=== PATIENT | female | born 1950 | race Caucasian/White ===

== ENCOUNTER 2020-04-11 13:15 | Outpatient (REF) | payer MEDICARE, OTHER, SELFPAY | END 2020-04-11 13:16 | disposition home or self-care (01) | LOC: HO.LAB 13:15 | PROVIDERS: Visit Provider Internal Medicine | DX: Z20.828 Contact with and (suspected) exposure to other viral communicable diseases (principal) | CPT/HCPCS: C9803; U0003 ==

== ENCOUNTER 2025-02-19 11:21 | Outpatient (REF) | payer MEDICARE, OTHER, SELFPAY ==
--- NOTE | ~2025-02-19 | XR_ITS ---
EXAMINATION: XR CHEST CLINICAL INFORMATION: R05.9 - Cough, unspecified COMPARISON: None available. TECHNIQUE: 2 views of the chest were obtained. FINDINGS: The cardiac, hilar, and mediastinal contours are normal. The lungs are clear bilaterally. There is no pneumothorax or pleural effusion. There is no focal osseous or soft tissue abnormality. Cervical device fusion partially imaged. XR/XR chest 2V IMPRESSION: No active pulmonary disease. Electronically signed by: Alex Spencer MD 02/19/2025 01:25 PM JEANNE
[2025-02-19 17:13] LABS: Resp Syncy Virus RNA Qual PCR NEGATIVE (Negative); SARS COV2 PCR INHOUSE POSITIVE (Negative)
== END 2025-02-19 11:22 | disposition home or self-care (01) ==
LOC: HO.HMGCX 11:21
PROVIDERS: PCP Internal Medicine; Visit Provider Physician Assistant Medical
DX: R06.02 Shortness of breath (principal); R05.9 Cough, unspecified; R09.89 Other specified symptoms and signs involving the circulatory and respiratory systems; E11.9 Type 2 diabetes mellitus without complications
CPT/HCPCS: 71046; 87637; 99212

== ENCOUNTER 2025-02-19 11:21 | Outpatient (AMB) | payer MEDICARE, OTHER, SELFPAY ==
--- OUTSIDE RECORDS SUMMARY | 2025-02-15 18:03 | XMS_ITS | Encounter Summary ---
Author Organization [facility] Address [address] [place] [address] Care Team Providers Care Communications Analyst Name Role Phone Barbara Aguero MD Primary Care Provider Reason for Visit * Reason Comments Fall Encounter Details Date Type Department Care Team (Late st Contact Info) Description 02/15/2025 7:03 PM EDT - 02/15/2025 9:47 PM EDT Emergency [facility] Emergency [address] [place] [address] Acute pain of both knees (Primary Dx); Fall, initial encounter Discharge Disposition: Home or Self Care Social History Tobacco Use Types Packs/Day Years Used Date Smoking Tobacco: Former Cigarettes Q uit: 07/25/1992 Smokeless Tobacco: Never Alcohol Use Standard Drinks/Week Comments Not Currently 0 (1 standard drink = 0.6 oz pur e alcohol) Housing Instability Answer Date Recorde d Are you worried that in the next 2 months you may not have stable housing? No 12/13/2024 Food Access & Nutrition Answer Date Rec orded Do you have access to a vari ety of food including fruits and vegetables? Yes 12/13/2024 Access to Healthcare Answer Date Record ed Within the last 3 months, carol okeefe many times did you visit the emergency department for your medical care? 0 12/13/2024 Health Literacy Answer Date Recorded How often do you need to hav e someone help you when you read instructions, pamphlets, or other written material from your doctor or pharmacy? Never 12/13/2024 Caregiver: How often do you need to have someone help you when you read instructions, pamphlets, or other written material from your doctor or pharmacy? Not on file 12/13/2024 Financial Risk Answer Date Recorded How hard is it for you to pa y for the very basics like food, housing, medical care, and air conditioning / heating? Not very hard 12/13/2024 Transportation Answer Date Recorded Has the lack of transportati on kept you from meetings, work, or from getting things needed for daily living? No Has the lack of transportati on kept you from medical appointments or from getting medications? No 12/13/2024 Social Isolation Answer Date Recorded How often do you feel lonely or isolated from those around you? Sometimes 12/13/2024 Food Risk Answer Date Recorded Within the past 12 months we worried whether our food would run out before we got money to buy more. Never true 12/13/2024 Within the past 12 months th e food we bought just didn't last and we didn't have money to get more. Never true 12/13/2024 Dependent Care Answer Date Recorded Do you need help finding or paying for care for your loved ones. For example, childcare center administrator or elderly care for an older adult? No 12/13/2024 Education Answer Date Recorded Do you think completing more education or training, like finishing a GED, going to college, or learning a trade, would be helpful for you? No 12/13/2024 Employment and Income Answer Date Recor ded During the last four weeks, have you been actively looking for work? No 12/13/2024 Living Situation Answer Date Recorded What is your living situation? Unrecognized valu e 12/13/2024 Comments No Sex and Gender Information Value Date Recorded Sex Assigned at Female 05/29/2024 4:58 PM EST Legal Sex Female 4:06 AM EST Gender Identity Female 05/29/2024 4:58 PM EST Sexual Orientation Straight 05/29/2024 4: 58 PM EST documented as of this encounter Last Filed Vital Signs Vital Sign Reading Time Taken Comments Blood Pressure 181/74 02/15/2025 6:02 PM EDT Pulse 97 02/15/2025 6:02 PM EDT Temperature 37.4 C (99.3 F) 02/15/2025 6:02 PM EDT Respiratory Rate 22 02/15/2025 6:02 PM EDT Oxygen Saturation 98% 02/15/2025 6:02 PM EDT Inhaled Oxygen Concentration - - Weight 77.1 kg (170 lb) 02/15/2025 6:02 PM EDT Height 157.5 cm (5' 2 ) 02/15/2025 6:02 PM EDT Body Mass Index 31.09 02/15/2025 6:02 PM EDT documented in this encounter Functional Status * Calculated C-SSRS Risk Score (Lifetime/Recent) Answer Date of Assessment Author No Risk Indicated 02/15/2025 6:05 PM EDT Raegna Eaton RN * [place] Suicide Severity Rating Scale (Screener/Recent Self-Report) Question Answer Date of Assessment Author 1. Wish to be (Past 1 Month) No 025 6:05 PM EDT Raegan Eaton RN 2. Non-Specific Active Suici luz maria Thoughts (Past 1 Month) No 02/15/2025 6:05 PM EDT Roly Eaton RN 6. Suicidal Behavior (Lifetime) No 6:05 PM EDT Raegan Eaton RN documented as of this encounter Discharge Instructions * Discharge Instructions* LUANN Sanchez - 02/15/2025 9:28 PM EDT You were seen for your muscle/skeletal concern. Your initial interpretation of x-ray today was negative for fracture dislocation. If you still have pain in 7 days then please get repeat x-rays done to rule out fracture. Follow up with your primary care provider who may order advanced imaging such as CT ultrasound or MRI. May refer you to physical therapy or to email marketing specialist. Apply over the counter NSAID topical cream to the area 4 times a day, use ice for 30 minutes 3-5 times daily. If given, then use splint/brace and elevate. You may choose to buy an over the counter brace or compression sleeve for comfort. Follow up with your primary provider for re-evaluation within 3 days. Return to the Emergency Department sooner if you have numbness/tingling, coolness to extremity. documented in this encounter Medications at Time of Discharge atorvastatin (LIPITOR) 40 mg tablet Take 1 tablet (40 mg total) by mouth 1 (one) time each day. 90 each 1 12/13/2024 blood-glucose sensor (Dexcom G7 Sensor) device Box = Kit = EA 9 each 12/13/2024 blood-glucose,rec eiver,cont (Dexcom G7 Bounty Hunter) misc 3 (three) times a day before meals. 1 each 1 12/13/2024 blood-glucose,rec eiver,cont misc Blood glucose monitoring 1 each 1 12/26/2024 clobetasoL (TEMOVATE) 0.05 % ointmentIndicatio ns:Lichen sclerosus of the vulva Apply a small amount (the size of a rice grain!) of clobetasol ointment to vulva twice daily for four weeks. Then, apply once daily for four weeks. Then, apply three times per week for four weeks. Then apply twice weekly thereafter. 60 g 3 08/07/2024 cyclobenzaprine (FLEXERIL) 5 mg tablet Take 1 tablet (5 mg total) by mouth at bedtime as needed for muscle spasms. 30 tablet 12/26/2024 5 dapagliflozin propanediol (Farxiga) 10 mg tablet Take 1 tablet (10 mg total) by mouth 1 (one) time each day. 90 each 12/13/2024 5 diclofenac (VOLTAREN) 1 % topical gel Apply 4 g topically 4 (four) times a day for 7 days. 100 g 02/15/2025 5 fenofibrate (TRICOR) 145 mg tablet Take 1 tablet (145 mg total) by mouth 1 (one) time each day. 90 each 12/13/2024 gabapentin (NEURONTIN) 300 mg capsule Take 1 capsule (300 mg total) by mouth 3 (three) times a day. 270 each 1 12/13/2024 insulin glargine (LANTUS SoloStar) 100 unit/mL (3 mL) injection pen Inject 38 Units under the skin at bedtime. 45 mL 12/13/2024 5 insulin lispro 100 unit/mL injection -Administer within 15 minutes of a meal PATIENT FOLLOWS WITH SLIDING SCALE AT HOME 90 mL 1 12/26/2024 isosorbide mononitrate (IMDUR) 120 mg 24 hr tablet Take 1 tablet (120 mg total) by mouth 1 (one) time each day. Do not crush or chew. 90 each 1 12/13/2024 lidocaine (LIDODERM) 5 % patch Apply 1 patch topically 1 (one) time each day if needed for moderate pain or severe pain. Apply to painful area 12 hours per day, remove for 12 hours. 30 each 2 12/26/2024 losartan (COZAAR) 25 mg tablet Take 1 tablet (25 mg total) by mouth 1 (one) time each day. 90 each 1 12/13/2024 mirabegron (Myrbetriq) 50 mg 24 hr tablet Take 1 tablet (50 mg total) by mouth 1 (one) time each day. 90 tablet 3 11/07/2024 pantoprazole (PROTONIX) 20 mg EC tablet Take 1 tablet (20 mg total) by mouth 1 (one) time each day before breakfast. Do not crush, chew, or split. 90 tablet 1 12/13/2024 simethicone (MYLICON) 80 mg chewable tablet Chew 1 tablet (80 mg total) every 6 (six) hours if needed for flatulence. 30 tablet 2 12/13/2024 SUMAtriptan (IMITREX) 25 mg tablet Take 1 tablet (25 mg total) by mouth 1 (one) time if needed for migraine. May repeat after 2 hours. 27 tablet 3 12/13/2024 traZODone (DESYREL) 50 mg tablet Take 1 tablet (50 mg total) by mouth at bedtime as needed for sleep. 90 tablet 1 12/13/2024 documented as of this encounter Ordered Prescriptions Prescription Sig Dispense Quantity Refills Last Filled Start Date End Date diclofenac (VOLTAREN) 1 % topical gel Apply 4 g topically 4 (four) times a day for 7 days. 100 g 02/15/2025 5 documented in this encounter Discharge Disposition Disposition Code Departure Means Destination Comment s Home or Self Care Patient evaluated, treated and dcd by provider in triage. This RN did not take part in patient's care documented in this encounter Progress Notes * Patty Guidry RN - 02/15/2025 5:58 PM EDT Two days ago she was walking in her house and fell. She states she didn't trip on anything and didn't get dizzy and fall. She hurt both knees, left hip and groin pain, and neck pain. She is ambulatory with a cane on arrival. * LUANN Sanchez - 02/15/2025 5:56 PM EDT HPI Chief Complaint Patient presents with Fall Patient 74-year-old female past medical history diabetes hypertension coronary artery disease anemia presents emergency department for evaluation of bilateral knee pain left hip pain after a fall 2 days ago. Patient without preceding chest pain shortness of breath. Patient states she did not trip on anything. She did not have an LOC or head trauma. She is not on blood thinners. She states pain to the extremities. This is where she fell onto. She recalls the entire event. She felt well after the fall. She has not treated her symptoms at home. She has full range of motion no distal paresthesias or weakness. No slurred speech. No headache blurred vision. No neck pain. 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 Physical Exam ED Triage Vitals [02/15/25 1802] Temp Heart Rate Resp BP 37.4 ??C (99.3 ??F) 97 22 (!) 181/74 SpO2 Temp Source Heart Rate Source Patient Position 98 % Oral -- -- BP Location FiO2 (%) -- -- Physical Exam Vitals and nursing note reviewed. Constitutional: Appearance: Normal appearance. HENT: Head: Normocephalic and atraumatic. Cardiovascular: Rate and Rhythm: Normal rate and regular rhythm. Pulmonary: Effort: Pulmonary effort is normal. Breath sounds: Normal breath sounds. Musculoskeletal: General: Tenderness present. No swelling or deformity. Normal range of motion. Cervical back: Normal range of motion and neck supple. Comments: Bilateral knees: Patient with tenderness palpation overlying skin soft tissue findings soft warm compartments distally Skin: General: Skin is warm and dry. Capillary Refill: Capillary refill takes less than 2 seconds. Neurological: General: No focal deficit present. Mental Status: She is alert. ED Course & MDM Clinical Impressions as of 02/15/252245 Acute pain of both knees Fall, initial encounter Medical Decision Making Differential diagnosis includes fracture dislocation musculoskeletal strain sprain. Low suspicion skin soft tissue infection neurovascular injury. X-rays obtained pelvis x-rays knees bilaterally negative for fracture dislocation. Patient discharged with Voltaren prescription. Return precautions discussed. Procedures LUANN Sanchez 02/15/252126 [1] Past Medical History: Diagnosis Date Anemia DX:Anemia CAD (coronary artery disease) DX:CAD (coronary artery disease) Diabetes (CMS/HCC V24, CMS/HCC V28) DX:Diabetes (HCC) Diabetes mellitus (CMS/HCC V24, CMS/HCC V28) DX:Diabetes mellitus (HCC) HTN (hypertension) DX:HTN (hypertension) Hypertension DX:Hypertension [2] Past Surgical History: Procedure Laterality Date CARPAL TUNNEL RELEASE Right 10/07/2023 and TF release of ring finger CHOLECYSTECTOMY PROCEDURE:CHOLECYSTECTOMY HERNIA REPAIR PROCEDURE:HERNIA REPAIR HYSTERECTOMY PROCEDURE:HYSTERECTOMY HYSTERECTOMY PROCEDURE: HISTORICAL HYSTERECTOMY TOTAL KNEE ARTHROPLASTY PROCEDURE: HISTORICAL TOTAL KNEE REPLACE [3] Family History Problem Relation Name Age of Onset Lung cancer Sister Brain cancer Sister Lung cancer Sister LUANN Sanchez 02/15/252245 Cosigned by Jeff Jensen MD at 02/16/2025 2:35 AM EDT documented in this encounter Plan of Treatment Upcoming Encounters Date Type Department Care Team (Late st Contact Info) Description 02/27/2025 8:30 AM EST Office Visit Urogynecology - [address] [phone] Salima Milton MD [address] [address] [place] [address] 02/27/2025 1:30 PM EST Office Visit [facility] Hematology Oncology [address] [place] [phone] Tasia Frey PA [address] [place] [address] 03/19/2025 9:00 AM EST Appointment [facility] Endoscopy [address] [place] [phone] Toni Carlson DO [address] [facility] [address] [place] [address] 03/21/2025 1:30 PM EST Office Visit Orthopedic Surgery - [place] [address] [facility] [address] [place] [phone] Zoran Marin, DPM [address] [place] [phone] 04/04/2025 11:30 AM EST Office Visit [facility] - [address] [phone] Barbara Aguero MD [address] [place] [address] 04/05/2025 2:00 PM EST Office Visit Endocrinology - [address] [phone] Charlee Ray PA [address] [place] [address] 08/13/2025 2:00 PM EDT Office Visit Pulmonology - [place] [address] [facility] [address] [place] [phone] Deneen Carter MD [address] [place] [address] 11/13/2025 8:30 AM EDT Office Visit Urogynecology [address] [phone] Salima Milton MD [address] [place] [address] 12/13/2025 4:00 PM EDT Office Visit [facility] - [address] [phone] Barbara Aguero MD [address] [place] [address] documented as of this encounter Goals Goal Patient Goal Type Associated Problems Recent Progress Patient-Stated? Author <enter goal here> General No change( 025 1:35 PM EDT) Yes Fide Leone, OT Note: OT PATIENT GOAL HAVE LESS PAIN RIGHT DOMINANT HAND TO RESUME ARTS AND CRAFTS documented as of this encounter Procedures Procedure Name Priority Date/Time Associated Diagnosis Comments XR PELVIS 1-2 VIEWS STAT 02/15/2025 7 :49 PM EDT XR KNEE 4+ VIEWS BILAT STAT 02/15/2025 7:49 PM EDT documented in this encounter Results * XR Knee 4+ Views bilat (02/15/2025 7:49 PM EDT) Anatomical Region Laterality Modality Lower Extremities, Knee Bilateral [facility] 02/16/2025 9:46 AM EDT Impressions 02/16/2025 9:47 AM EDT FINDINGS/IMPRESSION: Right knee arthroplasty. No acute fracture or dislocation. Mild tricompartmental degenerative changes at the left knee. No joint effusions or focal soft tissue swelling. Arterial calcifications. -------- FINAL REPORT -------- Dictated By: HANDY GRANT Dictated Date: 02/16/2025 09:46 ET Assigned Physician: HANDY GRANT Reviewed and Electronically Signed By: HANDY GRANT Signed Date: 02/16/2025 09:47 ET Workstation ID: [id number] Transcribed By: Self Edit Transcribed Date: 02/16/2025 09:46 ET Narrative 02/16/2025 9:47 AM EDT XR KNEE 4+ VIEWS BILAT INDICATION: Pain TECHNIQUE: XR KNEE 4+ VIEWS BILAT COMPARISON: No priors available. Procedure Note Handy Grant MD - 02/16/2025 XR KNEE 4+ VIEWS BILAT INDICATION: Pain TECHNIQUE: XR KNEE 4+ VIEWS BILAT COMPARISON: No priors available. IMPRESSION: FINDINGS/IMPRESSION: Right knee arthroplasty. No acute fracture ordislocation. Mild tricompartmental degenerative changes at the left knee.No joint effusions or focal soft tissue swelling. Arterialcalcifications. -------- FINAL REPORT -------- Dictated By: HANDY GRANT Dictated Date: 02/16/2025 09:46 ET Assigned Physician: HANDY GRANT Reviewed and Electronically Signed By: HANDY GRANT Signed Date: 02/16/2025 09:47 ET Workstation ID: [id number] Transcribed By: Self Edit Transcribed Date: 02/16/2025 09:46 ET Lesley KONG IMG XR PROCEDURES Final Result * XR Pelvis 1-2 Views (02/15/2025 7:49 PM EDT) Anatomical Region Laterality Modality Body, Pelvis Radiographic Neda ging 02/16/2025 9:48 AM EDT Impressions 02/16/2025 9:48 AM EDT FINDINGS/IMPRESSION: No acute fracture or dislocation. Mild degenerative changes at the hips. Degenerative change also noted in the lower lumbar facet joints. Surgical clips overlie the pelvis. No focal soft tissue swelling. -------- FINAL REPORT -------- Dictated By: HANDY GRANT Dictated Date: 02/16/2025 09:48 ET Assigned Physician: HANDY GRANT Reviewed and Electronically Signed By: HANDY GRANT Signed Date: 02/16/2025 09:48 ET Workstation ID: [id number] Transcribed By: Self Edit Transcribed Date: 02/16/2025 09:48 ET Narrative 02/16/2025 9:48 AM EDT XR PELVIS 1-2 VIEWS INDICATION: Pain TECHNIQUE: XR PELVIS 1-2 VIEWS COMPARISON: No priors available. Procedure Note Handy Grant MD - 02/16/2025 XR PELVIS 1-2 VIEWS INDICATION: Pain TECHNIQUE: XR PELVIS 1-2 VIEWS COMPARISON: No priors available. IMPRESSION: FINDINGS/IMPRESSION: No acute fracture or dislocation. Mild degenerativechanges at the hips. Degenerative change also noted in the lower lumbarfacet joints. Surgical clips overlie the pelvis. No focal soft tissueswelling. -------- FINAL REPORT -------- Dictated By: HANDY GRANT Dictated Date: 02/16/2025 09:48 ET Assigned Physician: HANDY GRANT Reviewed and Electronically Signed By: HANDY GRANT Signed Date: 02/16/2025 09:48 ET Workstation ID: [id number] Transcribed By: Self Edit Transcribed Date: 02/16/2025 09:48 ET Lesley KONG IMG XR PROCEDURES Final Result documented in this encounter Visit Diagnoses Diagnosis Acute pain of both knees- Primary Fall, initial encounter documented in this encounter Additional Health Concerns Assessment Noted Time PHQ-9 Depression Total Score: 0 12/14/19 25 2:10 PM EDT A fall risk assessment has been complete d for the patient 12/13/2024 2:11 PM EDT documented as of this encounter Care Teams Communications Analyst Relationship Specialty Start Date End Date Barbara Aguero MD [address] [place] [address] PCP - General 10/26/23 documented as of this encounter
[2025-02-19 11:39] VITALS: BP 157/59; PULSE 90; RESP 18; O2SAT 97
--- NOTE | 2025-02-19 11:39 | AM.OFFWIN_ITS ---
Intake Vital Signs 02/19/25 11:39 02/19/25 11:43 Height 5 ft 3.5 in Weight 172 lb BMI 30.0 BP 157/59 H 146/54 H Blood Pressure Location Lt brachial Lt brachial Position Sitting Sitting Respiration 18 Pulse 90 77 Pulse Source Pulse Oximeter Pulse Oximeter Temp 98.1 F Temp Source Oral Pulse Oximetry (%) 97 97 Oxygen Delivery Method Room Air Room Air Intake Visit Reasons: EP Cough, SOB Intake Note: pt presents with chest congestion with dry cough, SOB with worsening when laying down- s/s for 3 days Allergies codeine (CODEINE) Allergy (Severe, Verified 02/19/25 11:47) Anaphylaxis cephalexin Allergy (Intermediate, Verified 02/19/25 11:47) Rash amoxicillin Allergy (Mild, Verified 02/19/25 11:47) Rash Iodinated Contrast Media (IV DYE, IODINE CONTAINING CONTRAST ) Allergy (Unknown, Verified 02/19/25 11:44) UNKNOWN Sulfa (Sulfonamide Antibiotics) (SULFA (SULFONAMIDE ANTIBIOTICS)) Allergy (Unknown, Verified 02/19/25 11:44) HIVES azithromycin (From ZITHROMAX) Adverse Reaction (Intermediate, Verified 02/19/25 11:44) CDIFF hydromorphone Adverse Reaction (Intermediate, Verified 02/19/25 11:47) mental altering Do you need a note to return to daycare/school/sports/work: No HPI HPI Comments History of Present Illness Details History - The patient is a 74-year-old female pr esenting with a persistent cough and difficulty sleeping due to breathing issues. - The cough began on Wednesday afternoon an d is described as dry, with no phlegm production. - The patient denies any history of asth ma or COPD and has not used inhalers. - She reports a sore throat, which is li rosemary due to the persistent coughing. - The patient has a history of hypertens ion and diabetes mellitus, which affects her medication preferences, particularly avoiding prednisone due to its impact on blood sugar levels. - She denies fever, chills, chest pain, SOB, abd pain, n/v/d, DELA CRUZ, ear pain, recent travel or sick contacts. Physical Exam General: Cooperative, healthy appearing, comfortable and no acute distress Orientation/consciousness: Patient oriented x3 Limitations: No limitations Head: Normal to inspection Ears: Hearing grossly normal bilaterally, external ears normal and TM's normal bilaterally Nose: Normal external nose present, normal nares present, and no nasal discharge present. Face and sinus: Sinuses nontender to palpation. Mouth: Normal oral and palatal mucosa present and moist mucous membranes noted. Throat: Tonsils normal. Uvula is midline. Posterior oropharynx with erythema and no exudates. Sore throat noted. Eyes: Appearance normal, both eyes and all related structures Neck: Normal visual inspection, full ROM. No lymphadenopathy noted. Respiratory: Clear to auscultation bilaterally. Normal respiratory effort, able to speak in complete sentences. No respiratory distress, not tachypneic, no tripod positioning and no use of accessory muscles. Coughing noted. Cardiovascular: Regular rate and rhythm. Normal S1 and S2 Skin: No rashes or lesions noted Patient was informed and verbally consented to the use of an ambient scribe for clinic note documentation during this visit Review of Systems Const All systems reviewed & are unremarkable except as noted in HPI and below Physical Exam Vital Signs: Last Vital Signs Temp 98.1 F 02/19/25 11:43 Pulse 77 02/19/25 11:43 Resp 18 02/19/25 11:39 BP 146/54 H 02/19/25 11:43 Pulse Ox 97 02/19/25 11:43 Oxygen Delivery Method Room Air 02/19/25 11:43 BMI result Body Mass Index 30.0 Results Reviewed Results Reviewed: will review her CXR in the office Assessment & Plan Assessment & Plan (1) Cough: Code(s): R05.9 - Cough, unspecified Plan Most likely URI vs covid vs CAP vs viral illness Plan - VSS, pt well appearing - Diagnostic testing includes COVID-19, influenza, and RSV swabs, as well as a chest x-ray. - Treatment plan includes prescribing an inhaler and cough medicine, avoiding prednisone due to diabetes. - tylenol or motrin as needed - will call with the results - follow up with PCP Orders: Orders SARS-CoV2/FLU/RSV Today R09.89 - Other specified symptoms and signs involving the circulatory and respiratory systems XR chest 2V Today R05.9 - Cough, unspecified Medications: New benzonatate 200 mg PO BEDTIME PRN 10 caps 0RF cough albuterol sulfate 90 mcg/actuation 2 puffs inhalation Q6H PRN 8.5 grams 0RF shortness of breath or wheezing or cough Coding Level of Care Code Est Pt Level 4 (78201) Diagnoses Cough R05.9
--- NOTE | 2025-02-19 11:39 | MHC.OFFWIV ---
Intake Vital Signs 02/19/25 11:39 02/19/25 11:43 Height 5 ft 3.5 in Weight 172 lb BMI 30.0 BP 157/59 H 146/54 H Blood Pressure Location Lt brachial Lt brachial Position Sitting Sitting Respiration 18 Pulse 90 77 Pulse Source Pulse Oximeter Pulse Oximeter Temp 98.1 F Temp Source Oral Pulse Oximetry (%) 97 97 Oxygen Delivery Method Room Air Room Air Intake Visit Reasons: EP Cough, SOB Intake Note: Pt ambulated (I) gait steady to triage corner. A/O x 3, no shortness of breath noted speaks in full sentences. Lungs - diminished. Heart sounds - regular. Pt c/o dry cough since Wednesday with shortness of breath, taking Tylenol cold/cough. Hx of 3 cardiac stents placed 2-3 years ago. Pt stated left side chest pain this am between 4600-3949 which last for approximately 7 minutes. Pt stated she took her am medications today. Pt stated insulin diabetic, blood sugar now - 398. Pt stated that she had 1 toast, cup of coffee and diet cranberry juice. Portia (PA-C) and Felecia ([employer]) aware. Allergies codeine (CODEINE) Allergy (Severe, Verified 02/19/25 11:47) Anaphylaxis cephalexin Allergy (Intermediate, Verified 02/19/25 11:47) Rash amoxicillin Allergy (Mild, Verified 02/19/25 11:47) Rash Iodinated Contrast Media (IV DYE, IODINE CONTAINING CONTRAST ) Allergy (Unknown, Verified 02/19/25 11:44) UNKNOWN Sulfa (Sulfonamide Antibiotics) (SULFA (SULFONAMIDE ANTIBIOTICS)) Allergy (Unknown, Verified 02/19/25 11:44) HIVES azithromycin (From ZITHROMAX) Adverse Reaction (Intermediate, Verified 02/19/25 11:44) CDIFF hydromorphone Adverse Reaction (Intermediate, Verified 02/19/25 11:47) mental altering Coding
[2025-02-19 11:43] VITALS: BP 146/54; PULSE 77; TEMP 36.7; O2SAT 97
--- OUTSIDE RECORDS SUMMARY | 2025-02-19 14:27 | XMS_ITS | Clinical Summary ---
Author Organization 175 [facility] Address [address] [place] [address] Phone Care Team Providers Care Corrections Nurse Name Role Phone Barbara Aguero MD Primary Care Provider Allergies Active Allergy Reactions Criticality Noted Date Comments Amoxicillin 11/09/2022 Azithromycin 11/09/2022 Cephalexin 11/09/2022 Codeine 11/09/2022 Hydromorphone 11/09/2022 Iodinated Contrast Media Shortness of breath High Oxycodone 11/09/2022 Sulfa (Sulfonamide Antibiotics) 10/18 Medications albuterol HFA (PROAIR HFA ; PROVENTIL HFA ; VENTOLIN HFA) 90 mcg/actuation inhaler Inhale 2 puffs by mouth every 6 (six) hours if needed for shortness of breath or wheezing. for wheezing 6.7 g 2 5 Active clobetasoL (TEMOVATE) 0.05 % ointmentIndicati ons:Lichen sclerosus of the vulva Apply a small amount (the size of a rice grain!) of clobetasol ointment to vulva twice daily for four weeks. Then, apply once daily for four weeks. Then, apply three times per week for four weeks. Then apply twice weekly thereafter. 60 g 3 5 Active mirabegron (Myrbetriq) 50 mg 24 hr tablet Take 1 tablet (50 mg total) by mouth 1 (one) time each day. 90 tablet 3 5 Active atorvastatin (LIPITOR) 40 mg tablet Take 1 tablet (40 mg total) by mouth 1 (one) time each day. 90 each 1 5 Active fenofibrate (TRICOR) 145 mg tablet Take 1 tablet (145 mg total) by mouth 1 (one) time each day. 90 each 1 5 Active gabapentin (NEURONTIN) 300 mg capsule Take 1 capsule (300 mg total) by mouth 3 (three) times a day. 270 each 1 5 Active isosorbide mononitrate (IMDUR) 120 mg 24 hr tablet Take 1 tablet (120 mg total) by mouth 1 (one) time each day. Do not crush or chew. 90 each 1 5 Active losartan (COZAAR) 25 mg tablet Take 1 tablet (25 mg total) by mouth 1 (one) time each day. 90 each 1 5 Active pantoprazole (PROTONIX) 20 mg EC tablet Take 1 tablet (20 mg total) by mouth 1 (one) time each day before breakfast. Do not crush, chew, or split. 90 tablet 1 5 Active SUMAtriptan (IMITREX) 25 mg tablet Take 1 tablet (25 mg total) by mouth 1 (one) time if needed for migraine. May repeat after 2 hours. 27 tablet 3 5 12/14/19 26 Active traZODone (DESYREL) 50 mg tablet Take 1 tablet (50 mg total) by mouth at bedtime as needed for sleep. 90 tablet 1 5 Active simethicone (MYLICON) 80 mg chewable tablet Chew 1 tablet (80 mg total) every 6 (six) hours if needed for flatulence. 30 tablet 2 5 Active insulin glargine (LANTUS SoloStar) 100 unit/mL (3 mL) injection pen Inject 38 Units under the skin at bedtime. 45 mL 5 03/13/20 25 Active blood-glucose,re ceiver,cont (Dexcom G7 Export Clerk) misc 3 (three) times a day before meals. 1 each 1 5 Active blood-glucose sensor (Dexcom G7 Sensor) device Box = Kit = EA 9 each 5 Active dapagliflozin propanediol (Farxiga) 10 mg tablet Take 1 tablet (10 mg total) by mouth 1 (one) time each day. 90 each 5 03/13/20 25 Active insulin lispro 100 unit/mL injection -Administer within 15 minutes of a meal PATIENT FOLLOWS WITH SLIDING SCALE AT HOME 90 mL 1 5 Active cyclobenzaprine (FLEXERIL) 5 mg tablet Take 1 tablet (5 mg total) by mouth at bedtime as needed for muscle spasms. 30 tablet 5 02/25/20 25 Active lidocaine (LIDODERM) 5 % patch Apply 1 patch topically 1 (one) time each day if needed for moderate pain or severe pain. Apply to painful area 12 hours per day, remove for 12 hours. 30 each 2 5 Active blood-glucose,re ceiver,cont [facility] Blood glucose monitoring 1 each 1 5 Active diclofenac (VOLTAREN) 1 % topical gel Apply 4 g topically 4 (four) times a day for 7 days. 100 g 5 02/23/20 25 Active Active Problems Problem Noted Date Diagnosed Date Osteopenia 02/06/2025 Type 2 diabetes mellitus, wi th long-term current use of insulin ([facility] V24, [facility] V28) 12/15/2024 Carpal tunnel syndrome of right wrist 10/31/2024 Palmar fascial fibromatosis (dupuytren) 11/01/19 25 Decreased radial pulse 09/07/2024 JUVENTINO positive 09/07/2024 Chronic hand pain, left 09/07/2024 Right hand pain 09/07/2024 Gastroesophageal reflux disease 09/07/2024 Fall 09/07/2024 Hyperlipidemia 06/19/2024 Primary hypertension 03/02/2024 Type 2 diabetes mellitus wit h diabetic neuropathy, with long-term current use of insulin ([facility] V24, [facility] V28) 03/02/2024 Chronic obstructive pulmonar y disease ([facility] V24, [facility] V28) 03/02/2024 Iron deficiency anemia 11/10/2022 Encounters Date Type Department Care Team Description 02/16/2025 Results Follow-Up [address] [phone] Barbara Aguero MD 02/16/[address] [phone] Barbara Aguero MD 02/15/2025 7:03 PM EDT - 02/15/2025 9:47 PM EDT Emergency [facility] Emergency [address] [place] [phone] Acute pain of both knees (Primary Dx); Fall, initial encounter Discharge Disposition: Home or Self Care 02/15/[address] [phone] Barbara Aguero MD 02/06/2025 Results Follow-Up [address] [phone] Barbara Aguero MD 02/05/2025 1:13 PM EDT - 02/05/2025 11:59 PM EDT Hospital Encounter [facility] Bone Density [address] [place] [phone] Screening for osteoporosis; Postmenopausal Discharge Disposition: Home or Self Care 01/01/2025 3:30 PM EDT Office Visit Orthopedic Surgery - [place] [address] [phone] Zoran Marin, DPM Ulcer of toe of right foot, limited to breakdown of skin (CMS/HCC V24, CMS/HCC V28) (Primary Dx); Type 2 diabetes mellitus with other specified complication, with long-term current use of insulin (CMS/HCC V24, CMS/HCC V28); Metatarsalgia of both feet 12/26/2024 9:05 AM EDT - 12/26/2024 11:59 PM EDT Hospital Encounter [address] [phone] Acute pain of right shoulder Discharge Disposition: Home or Self Care 12/26/2024 9:04 AM EDT - 12/26/2024 11:59 PM EDT Hospital Encounter [facility] [address] [place] [address] Diffuse pain in right upper extremity Discharge Disposition: Home or Self Care 12/26/2024 9:04 AM EDT - 12/26/2024 11:59 PM EDT Hospital Encounter [facility] [address] [place] [address] Diffuse pain in right upper extremity Discharge Disposition: Home or Self Care 12/26/2024 9:00 AM EDT - 12/26/2024 11:59 PM EDT Hospital Encounter [facility] [address] [place] [address] Diffuse pain in right upper extremity Discharge Disposition: Home or Self Care 12/26/2024 7:30 AM EDT Office Visit Adult [address] [phone] Barbara Aguero MD Primary hypertension (Primary Dx); Acute pain of right shoulder; Diffuse pain in right upper extremity 12/26/2024 Telephone Gastroenterology - [place] [address] [place] [address] Matilde Kc MD 12/15/2024 9:45 AM EDT Office Visit Orthopedic Surgery - [place] 175 [facility] [address] [place] [phone] Becky Villa MD Type 2 diabetes mellitus with other specified complication, with long-term current use of insulin (CMS/HCC V24, CMS/HCC V28) (Primary Dx); Carpal tunnel syndrome of right wrist; Palmar fascial fibromatosis (dupuytren) 12/13/2024 2:00 PM EDT Office Visit Adult Medicine [address] [phone] Barbara Aguero MD Routine general medical examination at a health care facility (Primary Dx); Type 2 diabetes mellitus with other specified complication, with long-term current use of insulin ([facility] V24, [facility] V28); Screening for osteoporosis; Postmenopausal; Chronic obstructive pulmonary disease, unspecified COPD type ([facility] V24, [facility] V28); Primary hypertension; Stage 3 chronic kidney disease, unspecified whether stage 3a or 3b CKD ([facility] V24, [facility] V28) 12/13/2024 Telephone Adult Medicine [address] [phone] Barbara Aguero MD 12/04/2024 8:30 AM EDT Office Visit Orthopedic Surgery [place] [address] [phone] Zoran Marin DPM Acquired hammer toe of right foot (Primary Dx); Dermatophytosis of nail; Ulcer of toe of right foot, limited to breakdown of skin ([facility] V24, [facility] V28); Type 2 diabetes mellitus with other specified complication, with long-term current use of insulin ([facility] V24, [facility] V28); Metatarsalgia of both feet; Hammer toe of left foot; Pain in toe of right foot; Pain in toe of left foot; Diabetic mononeuropathy simplex ([facility] V24, [facility] V28) 11/29/2024 1:30 PM EDT Treatment [facility] Occupational Therapy [address] [phone] Fide Leone OT Right hand pain (Primary Dx); Carpal tunnel syndrome of right wrist 11/27/2024 1:40 PM EDT - 11/27/2024 11:59 PM EDT Hospital Encounter [facility] Neurodiagnostic [address] [place] [phone] Carpal tunnel syndrome of right wrist Discharge Disposition: Home or Self Care 11/22/2024 1:30 PM EDT Treatment [facility] Occupational Therapy [address] [phone] Leone, Fide A, OT Carpal tunnel syndrome of right wrist (Primary Dx) from Last 3 Months Immunizations Immunization Administration Dates Next Due Tdap Tetanus diptheria acell ular pertussis (Boostrix; Adacel) 7yo and older 03/02/2024 Surgical History Surgery Date Site/Laterality Comments HYSTERECTOMY PROCEDURE:HYSTERECTOMY CHOLECYSTECTOMY PROCEDURE:CHOLECYSTECTOMY HERNIA REPAIR PROCEDURE:HERNIA REPAIR TOTAL KNEE ARTHROPLASTY PROCEDURE: HISTORICAL TOTAL KNEE REPLACE HYSTERECTOMY PROCEDURE: HISTORICAL HYSTERECTOMY CARPAL TUNNEL RELEASE 10/07/2023 Right and TF release of ring finger Medical History Medical History Date Comments Diabetes mellitus ([facility] V24, [facility] V28) DX:Diabetes mellitus (HCC) Hypertension DX:Hypertension Diabetes (CMS/HCC V24, [facility] V28) DX:Diabetes (HCC) HTN (hypertension) DX:HTN (hyper tension) CAD (coronary artery disease) DX :CAD (coronary artery disease) Anemia DX:Anemia Family History Medical History Relation Name Comments Lung cancer Sister 1 Brain cancer Sister 2 Lung cancer Sister 3 Relation Name Status Comments Father Mother Sister 1 Sister 2 Sister 3 Social History Tobacco Use Types Packs/Day Years Used Date Smoking Tobacco: Former Cigarettes Q uit: 07/25/1992 Smokeless Tobacco: Never Tobacco Cessation:Counseling Given: Not Answered Alcohol Use Standard Drinks/Week Comments Not Currently [...] care for your loved ones. For example, child's nurse or elderly care for an older adult? [...] Orientation Straight 05/29/2024 4: 58 PM EST Obstetrics History Para Term AB IAB SAB Ectopic Multiple Livin g Live Births 1 1 1 1 Date Outcome GA Total Labor Labor/2nd/3rd Weight Sex Type Anes PTL Stephanie A1 A5 Name Clin Term Last Filed Vital Signs Vital Sign Reading [...] Mass Index 31.09 02/15/2025 6:02 PM EDT Plan of Treatment Upcoming Encounters Date Type Department Care Team (Late st Contact Info) Description 02/27/2025 8:30 AM EST Office Visit Urogynecology - [place] [phone] [place], [place] [phone] Salima Milton MD 580 [facility] 205 [place] [address] 02/27/2025 1:30 PM EST Office Visit [facility] Hematology Oncology [address] [place] [phone] Tasia Frey PA [address] [place] [address] 03/19/2025 9:00 AM EST Appointment [facility] Endoscopy [address] [place] [phone] Toni Carlson DO 299 [facility] [address] [place] [address] 03/21/2025 1:30 PM EST Office Visit Orthopedic Surgery - [place] 250 175 [facility] [address] [place] [phone] Zoran Marin, DPCarey [address] [place] [phone] 04/04/2025 11:30 AM EST Office Visit Adult Medicine [place] - [place] [address] [place], [place] [phone] Barbara Aguero MD 444 [place], [place] 04/05/2025 2:00 PM EST Office Visit Endocrinology - [address] [phone] Charlee Ray PA [address] [place], [place] 08/13/2025 2:00 PM EDT Office Visit Pulmonology - [place] [address] [facility] [address] [place] [phone] Deneen Carter MD [address] [place] [phone] 11/13/2025 8:30 AM EDT Office Visit Urogynecology - [address] [phone] Salima Milton MD [address] [place] [address] 12/13/2025 4:00 PM EDT Office Visit Adult Medicine [place] - [address] [phone] Barbara Aguero MD [address] [place] [address] Health Maintenance Due Date Last Done Comments Diabetes: Annual Foot Exam 1960 Colorectal Cancer Screening: Stool Based Tests (FOBT/FIT) 03/22/2022 COVID-19 Vaccine (7 - Moderna risk 2023- season) 2024 04/07/2024, 02/08/2023, 01/09/2022, Additional history exists RSV Immunization Adult Patients (1 - Risk 50-74 years 1-dose series) 04/19/2025 Postponed from 2001 (Patient Refused) Zoster Vaccines (1 of 2) 04/19/2025 Pos tponed from 1970 (Patient Refused) Diabetes: Blood Sugar Control Test (HGBA1C) 06/16/2025 12/15/2024, 09/14/2024, 08/25/2024, Additional history exists Diabetes: Annual Retina Eye Exam 07/18/2025 07/18/2024 Falls Risk Assessment 12/13/2025 12/13/2024 , 12/13/2024, 09/28/2024 Medicare Annual Wellness Visit 12/13/2025 12/13/2024 Social Influencers of Health Screening 12/13/2025 12/13/2024 Diabetes: Annual Urine Albumin-Creatinine Ratio (uACR) 12/15/2025 12/15/2024, 09/14/2024, 08/25/2024, Additional history exists Diabetes: Annual GFR (Glomerular Filtration Rate) 12/15/2025 12/15/2024, 09/24/2024, 09/14/2024, Additional history exists Hypertension/CHF/CAD Annual BMP Blood Test 12/15/2025 12/15/2024, 09/24/2024, 09/14/2024, Additional history exists Breast Cancer Screening 06/28/2026 06/28/2024 Cholesterol Screening (Lipid Panel) 12/15/2029 12/15/2024, 09/14/2024, 08/25/2024, Additional history exists DTaP,Tdap,and Td Vaccines (2 - Td or Tdap) 03/02/2034 03/02/2024 Osteoporosis Screening (Bone Density Screening) 02/05/2035 02/05/2025 Pneumococcal Vaccine: 50+ Years Completed 03/30/2023, 12/25/2020 Depression Screening Completed 12/13/2024 Hepatitis C Screening Completed 12/15/2024 Influenza Vaccine Completed 01/11/2025, , 01/04/2023, Additional history exists HIB Vaccines Aged Out No longer eligi ble based on patient's age to complete this topic HPV Vaccines Aged Out No longer eligi ble based on patient's age to complete this topic Hepatitis A Vaccines Aged Out No long er eligible based on patient's age to complete this topic Hepatitis B Vaccines Aged Out No long er eligible based on patient's age to complete this topic IPV Vaccines Aged Out No longer eligi ble based on patient's age to complete this topic MMR Vaccines Aged Out No longer eligi ble based on patient's age to complete this topic Meningococcal ACWY Vaccine Aged Out N o longer eligible based on patient's age to complete this topic Meningococcal B Vaccine Aged Out No l onger eligible based on patient's age to complete this topic RSV Immunization Patients Under 20 months Aged Out No longer eligible based on patient's age to complete this topic Varicella Vaccines Aged Out No longer eligible based on patient's age to complete this topic Goals Goal Patient Goal Type Associated Problems Recent Progress Patient-Stated? Author <enter goal here> General No change(11/29 1:35 PM EDT) Yes Fide Leone, OT Note: OT PATIENT GOAL HAVE LESS PAIN RIGHT DOMINANT HAND TO RESUME ARTS AND CRAFTS Autogenerated Goal Care Plan Autogenerated Problem No Becky Kim Procedures Procedure Name Priority Date/Time Associated Diagnosis Comments XR KNEE 4+ VIEWS BILAT STAT 7:49 PM EDT XR PELVIS 1-2 VIEWS STAT 02/15/2025 7 :49 PM EDT BD BONE DENSITY DXA AXIAL SKELETON Routine 02/05/2025 1:41 PM EDT Screening for osteoporosis Postmenopausal EXTERNAL CLINICAL LAB 01/18/2025 XR ELBOW 3+ VIEWS RIGHT Routine 12/26/2024 9:43 AM EDT Diffuse pain in right upper extremity XR WRIST 3+ VIEWS RIGHT Routine 12/26/2024 9:43 AM EDT Diffuse pain in right upper extremity XR SHOULDER 2+ VIEWS RIGHT Routine 12/26/2024 9:42 AM EDT Acute pain of right shoulder XR FOREARM 2 VIEWS RIGHT Routine 12/26/2024 9:41 AM EDT Diffuse pain in right upper extremity PHOSPHORUS Routine 12/15/2024 7:41 AM EDT Routine general medical examination at a [facility] care facility Type 2 diabetes mellitus with other specified complication, with long-term current use of insulin (CMS/HCC V24, [facility] V28) Type 2 diabetes mellitus with other specified complication, unspecified whether long-term insulin use (CMS/HCC V24, CMS/HCC V28) MICROALBUMIN CREATININE URINE RATIO Routine 12/15/2024 7:41 AM EDT Type 2 diabetes mellitus with other specified complication, unspecified whether long-term insulin use ([facility] V24, [facility] V28) LIPID PANEL WITH REFLEX TO DIRECT LDL Routine 12/15/2024 7:41 AM EDT Type 2 diabetes mellitus with other specified complication, unspecified whether long-term insulin use ([facility] V24, [facility] V28) COMPREHENSIVE METABOLIC PANEL Routine 12/15/2024 7:41 AM EDT Type 2 diabetes mellitus with other specified complication, unspecified whether long-term insulin use ([facility] V24, [facility] V28) HEPATITIS C ANTIBODY Routine 12/15/2024 7:41 AM EDT Routine general medical examination at a health care facility HEMOGLOBIN A1C Routine 12/15/2024 7:41 AM EDT Routine general medical examination at a health care facility Type 2 diabetes mellitus with other specified complication, with long-term current use of insulin ([facility] V24, [facility] V28) EMG Routine 11/27/2024 2:13 PM EDT Carpal tunnel syndrome of right wrist MG MAMMO DIGITAL SCREENING W AMRIK BILAT Routine 06/28/2024 3:45 PM EDT Encounter for screening mammogram for malignant neoplasm of breast from Last 3 Months or Most Recently Relevant to Health Maintenance Results * XR Pelvis 1-2 Views (02/15/2025 7:49 [...] Signed Date: 02/16/2025 09:48 ET Workstation ID: [id number] Transcribed By: Self Edit Transcribed Date: 02/16/2025 [...] Signed Date: 02/16/2025 09:48 ET Workstation ID: [id number] Transcribed By: Self Edit Transcribed Date: 02/16/2025 09:48 ET Lesley KONG IMG XR PROCEDURES Final Result * XR Knee 4+ Views bilat (02/15/2025 7:49 PM EDT) Anatomical Region Laterality Modality Lower Extremities, Knee Bilateral [facility] 02/16/2025 9:46 AM EDT Impressions 02/16/2025 [...] Signed Date: 02/16/2025 09:47 ET Workstation ID: [id number] Transcribed By: Self Edit Transcribed Date: 02/16/2025 [...] Signed Date: 02/16/2025 09:47 ET Workstation ID: [id number] Transcribed By: Self Edit Transcribed Date: 02/16/2025 09:46 ET Lesley KONG IMG XR PROCEDURES Final Result * BD Bone Density DXA Axial Skeleton (02/05/2025 1:41 PM EDT) Anatomical Region Laterality Modality Wrist, Hip, L-spine Bone Densito metry 02/05/2025 4:58 PM EDT Impressions 02/05/2025 4:59 PM EDT Osteopenia. Teleev KONG ([id number]) -------- FINAL REPORT -------- Dictated By: Jazlyn Ferrara Dictated Date: 02/05/2025 16:58 ET Assigned Physician: Jazlyn Ferrara Reviewed and Electronically Signed By: Jazlyn Ferrara Signed Date: 02/05/2025 16:59 ET Workstation ID: [id number] Transcribed By: Self Edit Transcribed Date: 02/05/2025 16:58 ET Narrative 02/05/2025 4:59 PM EDT History: Low estrogen state due to menopause. Parent hip fracture. Former smoker. Comparison: No comparison study at this institution. Findings: Bone densitometry is performed utilizing dual energy x-ray absorptiometry (DXA) in the Bonafide Prodigy unit. The lumbar spine and proximal femora are evaluated in the AP projection. The FRAX questionaire was completed. The results indicate low bone mass (osteopenia), with a right femoral neck T- score of -2.4. The Z score is -0.8, indicating bone mineral density within the range of normal for age. The detailed DEXA report will be mailed to the referring physician's office. DualFemur FRAX: 10-year Probability of Fracture: Major Osteoporotic 25.1 percent Hip 13.7 percent. Procedure Note Jazlyn Ferrara MD - 02/05/2025 History: Low estrogen state due to menopause. Parent hip fracture. Formersmoker. Comparison: No comparison study at this institution. Findings: Bone densitometry is performed utilizing dual energy x-ray absorptiometry(DXA) in the Lunar Prodigy unit. The lumbar spine and proximal femora areevaluated in the AP projection. The FRAX questionaire was completed. The results indicate low bone mass (osteopenia), with a right femoral neckT- score of -2.4. The Z score is -0.8, indicating bone mineral densitywithin the range of normal for age. The detailed DEXA report will bemailed to the referring physician's office. DualFemur FRAX: 10-year Probability of Fracture: Major Osteoporotic 25.1percent Hip 13.7 percent. IMPRESSION: Osteopenia. Telerad LUANN ([id number]) -------- FINAL REPORT -------- Dictated By: Jazlyn Ferrara Dictated Date: 02/05/2025 16:58 ET Assigned Physician: Jazlyn Ferrara Reviewed and Electronically Signed By: Jazlyn Ferrara Signed Date: 02/05/2025 16:59 ET Workstation ID: [id number] Transcribed By: Self Edit Transcribed Date: 02/05/2025 16:58 ET us Barbara Aguero MD IMG DXA PROCEDURES Final Re sult * External clinical lab (01/18/2025) us Provider [facility] BLOOD ORDERABLES Fin al Result * XR Elbow 3+ Views Right (12/26/2024 9:43 AM EDT) Anatomical Region Laterality Modality Upper Extremities, Elbow Right Radiogr [facility] Imaging 12/26/2024 11:4 8 AM EDT Impressions 12/26/2024 11:49 AM EDT No fracture or dislocation of the right elbow. -------- FINAL REPORT -------- Dictated By: Octavia Medley Dictated Date: 12/26/2024 11:48 ET Assigned Physician: Octavia Medley Reviewed and Electronically Signed By: Octavia Medley Signed Date: 12/26/2024 11:49 ET Workstation ID: [id number] Transcribed By: Self Edit Transcribed Date: 12/26/2024 11:48 ET Narrative 12/26/2024 11:49 AM EDT HISTORY: fall, rght upper extremity pain TECHNIQUE: 3 viewsof the right elbow COMPARISON: None FINDINGS: The elbow joint is well maintained. No fracture or dislocation is seen. There is no joint effusion present. Soft tissues are unremarkable. Procedure Note Octavia Medley MD - 12/26/2024 HISTORY: fall, rght upper extremity pain TECHNIQUE: 3 viewsof the right elbow COMPARISON: None FINDINGS: The elbow joint is well maintained. No fracture or dislocation is seen.There is no joint effusion present. Soft tissues are unremarkable. IMPRESSION: No fracture or dislocation of the right elbow. -------- FINAL REPORT -------- Dictated By: Octavia Medley Dictated Date: 12/26/2024 11:48 ET Assigned Physician: Octavia Medley Reviewed and Electronically Signed By: Octavia Medley Signed Date: 12/26/2024 11:49 ET Workstation ID: [id number] Transcribed By: Self Edit Transcribed Date: 12/26/2024 11:48 ET Barbara Aguero MD IMG XR PROCEDURES Final Res ult * XR Wrist 3+ Views Right (12/26/2024 9:43 AM EDT) Anatomical Region Laterality Modality Upper Extremities, Wrist Right Radiogr aphic Imaging 12/26/2024 11:5 3 AM EDT Impressions 12/26/2024 12:16 PM EDT No acute fracture or dislocation of the right wrist. -------- FINAL REPORT -------- Dictated By: Octavia Medley Dictated Date: 12/26/2024 11:53 ET Assigned Physician: Octavia Medley Reviewed and Electronically Signed By: Octavia Medley Signed Date: 12/26/2024 12:16 ET Workstation ID: [id number] Transcribed By: Self Edit Transcribed Date: 12/26/2024 11:53 ET Narrative 12/26/2024 12:16 PM EDT HISTORY: fall, rght upper extremity pain TECHNIQUE: 3 radiographs of the right wrist. COMPARISON: Right wrist radiograph from 05/09/2024 FINDINGS: There is decreased bony mineralization without acute fracture or dislocation. There is mild radiocarpal joint space narrowing. The carpal bones demonstrate normal alignment. Soft tissue swelling is present. Vascular calcifications are present. Procedure Note Octavia Medley MD - 12/26/2024 HISTORY: fall, rght upper extremity pain TECHNIQUE: 3 radiographs of the right wrist. COMPARISON: Right wrist radiograph from 05/09/2024 FINDINGS: There is decreased bony mineralization without acute fracture ordislocation. There is mild radiocarpal joint space narrowing. The carpalbones demonstrate normal alignment. Soft tissue swelling is present.Vascular calcifications are present. IMPRESSION: No acute fracture or dislocation of the right wrist. -------- FINAL REPORT -------- Dictated By: Octavia Medley Dictated Date: 12/26/2024 11:53 ET Assigned Physician: Octavia Medley Reviewed and Electronically Signed By: Octavia Medley Signed Date: 12/26/2024 12:16 ET Workstation ID: [id number] Transcribed By: Self Edit Transcribed Date: 12/26/2024 11:53 ET us Barbara Aguero MD IMG XR PROCEDURES Final Res ult * XR Shoulder 2+ Views Right (12/26/2024 9:42 AM EDT) Anatomical Region Laterality Modality Upper Extremities, Shoulder Right Radi ographic Imaging 12/26/2024 9:52 AM EDT Impressions 12/26/2024 9:53 AM EDT No acute fracture or dislocation of the right shoulder. -------- FINAL REPORT -------- Dictated By: Octavia Medley Dictated Date: 12/26/2024 09:52 ET Assigned Physician: Octavia Medley Reviewed and Electronically Signed By: Octavia Medley Signed Date: 12/26/2024 09:53 ET Workstation ID: [id number] Transcribed By: Self Edit Transcribed Date: 12/26/2024 09:52 ET Narrative 12/26/2024 9:53 AM EDT HISTORY: right shoulder pain TECHNIQUE: 3 views of the right shoulder COMPARISON: None FINDINGS: No acute fracture or dislocation is seen. There is no evidence of malalignment. Mild narrowing of the acromioclavicular joint. Procedure Note Octavia Medley MD - 12/26/2024 HISTORY: right shoulder pain TECHNIQUE: 3 views of the right shoulder COMPARISON: None FINDINGS: No acute fracture or dislocation is seen. There is no evidence ofmalalignment. Mild narrowing of the acromioclavicular joint. IMPRESSION: No acute fracture or dislocation of the right shoulder. -------- FINAL REPORT -------- Dictated By: Octavia Medley Dictated Date: 12/26/2024 09:52 ET Assigned Physician: Octavia Medley Reviewed and Electronically Signed By: Octavia Medley Signed Date: 12/26/2024 09:53 ET Workstation ID: [id number] Transcribed By: Self Edit Transcribed Date: 12/26/2024 09:52 ET us Barbara Aguero MD IMG XR PROCEDURES Final Res ult * XR Forearm 2 Views Right (12/26/2024 9:41 AM EDT) Anatomical Region Laterality Modality Upper Extremities, Forearm Right Radio graphic Imaging 12/26/2024 11:5 2 AM EDT Impressions 12/26/2024 11:53 AM EDT No acute fracture or dislocation of the right forearm. -------- FINAL REPORT -------- Dictated By: Octavia Medley Dictated Date: 12/26/2024 11:52 ET Assigned Physician: Octavia Medley Reviewed and Electronically Signed By: Octavia Medley Signed Date: 12/26/2024 11:53 ET Workstation ID: [id number] Transcribed By: Self Edit Transcribed Date: 12/26/2024 11:52 ET Narrative 12/26/2024 11:53 AM EDT HISTORY: fall, rght upper extremity pain TECHNIQUE: Frontal and lateral radiographs of the right forearm. COMPARISON: None FINDINGS: The forearm demonstrates normal mineralization and articulation with no fracture or malalignment. There is no abnormal periosteal reaction. The visualized wrist and elbow articulations are well maintained. Vascular calcifications are present. Procedure Note Octavia Medley MD - 12/26/2024 HISTORY: fall, rght upper extremity pain TECHNIQUE: Frontal and lateral radiographs of the right forearm. COMPARISON: None FINDINGS: The forearm demonstrates normal mineralization and articulationwith no fracture or malalignment. There is no abnormal periostealreaction. The visualized wrist and elbow articulations are wellmaintained. Vascular calcifications are present. IMPRESSION: No acute fracture or dislocation of the right forearm. -------- FINAL REPORT -------- Dictated By: Octavia Medley Dictated Date: 12/26/2024 11:52 ET Assigned Physician: Octavia Medley Reviewed and Electronically Signed By: Octavia Medley Signed Date: 12/26/2024 11:53 ET Workstation ID: [id number] Transcribed By: Self Edit Transcribed Date: 12/26/2024 11:52 ET Barbara Aguero MD IMG XR PROCEDURES Final Res ult * Hepatitis C antibody (12/15/2024 7:41 AM EDT) [facility] Hepatitis C Antibody Negative Negative LAB CHEMISTRY METHOD 12/15/2024 11:57 AM EDT [facility] Blood Venous blood specimen / Unknown Venipuncture / Unknown 12/15/2024 7:41 AM EDT 12/15/2024 7:45 AM EDT Barbara Aguero MD LAB BLOOD ORDERABLES Final Result [facility] [address] [place] [address], [place] [phone] * (ABNORMAL) Lipid panel with reflex to direct LDL (12/15/2024 7:41 AM EDT) [facility] Cholesterol 147 0 - 200 mg/dL LAB CHEMISTRY METHOD 12/15/2024 10:32 AM EDT [facility] Triglycerides 230(H) 0 - 150 mg/dL LAB CHEMISTRY METHOD 12/15/2024 10:32 AM EDT [facility] HDL 51 >=40 mg/dL LAB CHEMISTRY METHOD 12/15/2024 10:32 AM EDT [facility] LDL Calculated 50 0 - 100 mg/dL LAB CHEMISTRY METHOD 12/15/2024 10:32 AM EDT [facility] Comment:Estimated LDL Calcul ated using equation: Total cholesterol - HDL cholesterol - (Triglycerides/5) VLDL Cholesterol Aldo 46 mg/dL LAB CHEMISTRY METHOD 12/15/2024 10:32 AM EDT [facility] Non HDL Chol. (LDL+VLDL) 96 <145 mg/dL LAB CHEMISTRY METHOD 12/15/2024 10:32 AM EDT [facility] Chol/HDL Ratio 2.9 0.0 - 4.4 LAB CHEMISTRY METHOD 12/15/2024 10:32 AM EDT [facility] Blood Venous blood specimen / Unknown Venipuncture / Unknown 12/15/2024 7:41 AM EDT 12/15/2024 7:45 AM EDT Barbara Aguero MD LAB BLOOD ORDERABLES Final Result [facility] [address] [place] [address], [place] [phone] * Microalbumin creatinine urine ratio (12/15/2024 7:41 AM EDT) Creatinine, Urine 55.0 mg/dL LAB CHEMISTRY METHOD 12/15/2024 11:06 AM EDT [facility] Microalb, Ur <5.0 0.0 - 29.0 mg/L LAB CHEMISTRY METHOD 12/15/2024 11:06 AM EDT [facility] Microalb/Creat Ratio <9 <30 mg/g creat LAB CHEMISTRY METHOD 12/15/2024 11:06 AM EDT [facility] Urine Urine specimen obtained by clean catch procedure / Unknown Non-blood Collection / Unknown 12/15/2024 7:41 AM EDT 12/15/2024 7:45 AM EDT Barbara Ageuro MD LAB URINE ORDERABLES Final Result [facility] [address] [place] [address], [place] [phone] * Phosphorus (12/15/2024 7:41 AM EDT) Phosphorus 4.4 2.5 - 4.5 mg/dL LAB CHEMISTRY METHOD 12/15/2024 10:29 AM EDT [facility] Blood Venous blood specimen / Unknown Venipuncture / Unknown 12/15/2024 7:41 AM EDT 12/15/2024 7:45 AM EDT Salinas Thompson MD LAB BLOOD ORDERABLES Final Re sult Performing Organization Address [facility]/ZIP Co de Phone Number [facility] [address] [place] [address], [place] [phone] * (ABNORMAL) Hemoglobin A1c (12/15/2024 7:41 AM EDT) Hemoglobin A1C 14.8(H) <6.5 % LAB CHEMISTRY METHOD 12/15/2024 1:45 PM EDT [facility] Mean Bld Glu Estim. 378 mg/dL LAB CHEMISTRY METHOD 12/15/2024 1:45 PM EDT [facility] Blood Venous blood specimen / Unknown Venipuncture / Unknown 12/15/2024 7:41 AM EDT 12/15/2024 7:45 AM EDT Barbara Aguero MD LAB BLOOD ORDERABLES Final Result Performing Organization Address [facility] Co de Phone Number [facility] [address] [place] [address], [place] [phone] * (ABNORMAL) Comprehensive metabolic panel (12/15/2024 7:41 AM EDT) Sodium 138 133 - 145 mmol/L LAB CHEMISTRY METHOD 12/15/2024 10:32 AM EDT [facility] Potassium 4.5 3.5 - 5.5 mmol/L LAB CHEMISTRY METHOD 12/15/2024 10:32 AM EDT [facility] Chloride 100 96 - 110 mmol/L LAB CHEMISTRY METHOD 12/15/2024 10:32 AM [facility] CO2 32 21 - 32 mmol/L LAB CHEMISTRY METHOD 12/15/2024 10:32 AM [facility] Anion Gap 6 3 - 11 LAB CHEMISTRY METHOD 12/15/2024 10:32 AM [facility] Glucose 398(H) 70 - 100 mg/dL LAB CHEMISTRY METHOD 12/15/2024 10:32 AM [facility] BUN 26(H) 5 - 25 mg/dL LAB CHEMISTRY METHOD 12/15/2024 10:32 AM [facility] Creatinine 1.60(H) 0.50 - 1.10 mg/dL LAB CHEMISTRY METHOD 12/15/2024 10:32 AM [facility] eGFR 34(L) >=60 mL/min/1. 73m2 LAB CHEMISTRY METHOD 12/15/2024 10:32 AM [facility] Comment:Calculation based on the Chronic Kidney Disease Epidemiology Collaboration (CKD-EPI) equation refit without adjustment for race. BUN/Creatinine Ratio 16.3 LAB CHEMISTRY METHOD 12/15/2024 10:32 AM [facility] Calcium 9.5 8.5 - 10.5 mg/dL LAB CHEMISTRY METHOD 12/15/2024 10:32 AM [facility] AST (SGOT) 22 10 - 42 unit/L LAB CHEMISTRY METHOD 12/15/2024 10:32 AM [facility] ALT (SGPT) 22 10 - 60 unit/L LAB CHEMISTRY METHOD 12/15/2024 10:32 AM [facility] Alkaline Phosphatase 93 42 - 121 unit/L LAB CHEMISTRY METHOD 12/15/2024 10:32 AM [facility] Total Protein 7.1 6.0 - 8.0 g/dL LAB CHEMISTRY METHOD 12/15/2024 10:32 AM [facility] Albumin 3.8 3.2 - 5.0 g/dL LAB CHEMISTRY METHOD 12/15/2024 10:32 AM EDT [facility] Total Bilirubin 0.4 0.0 - 1.4 mg/dL LAB CHEMISTRY METHOD 12/15/2024 10:32 AM EDT [facility] Blood Venous blood specimen / Unknown Venipuncture / Unknown 12/15/2024 7:41 AM EDT 12/15/2024 7:45 AM EDT us Barbara Aguero MD LAB BLOOD ORDERABLES Final Result [facility] [address] [place] [address], * EMG (11/27/2024 2:13 PM EDT) Narrative Yasmeen Mohr MD - 11/27/2024 4:08 PM EDT Images from the original result were not included. [facility] [address] [place] [address] Electromyograph Report Date of service: 11/27/24 Patient Name: Sharonda Go Read Date of : 1950 Age: 74 y.o. Gender: female Procedure Order: EMG Ordering Provider: Becky Villa MD Reason for Exam: There are no answered order specific questions. Diagnosis listed on Order: Carpal tunnel syndrome of right wrist Please see scanned report for testing details and results. Procedure Note Yasmeen Mohr MD - 11/27/2024 Images from the original note were not included. [facility] [address] [place] [address] Electromyograph Report Date of service: 11/27/24 Patient Name: Sharonda Go Read Date of : 1950 Age: 74 y.o. Gender: female Procedure Order: EMG Ordering Provider: Becky Villa MD Reason for Exam: There are no answered order specific questions. Diagnosis listed on Order: Carpal tunnel syndrome of right wrist Please see scanned report for testing details and results. EDT Becky Villa MD NEUROLOGY ORDERABLES Final Re sult * MG Mammo Digital Screening w Amrik bilat (06/28/2024 3:45 PM EDT) Anatomical Region Laterality Modality Breast Bilateral Mammography 06/29/2024 1:30 PM EDT Impressions 06/29/2024 2:53 PM EDT 1. No mammographic evidence of malignancy 2. Heterogeneous breast parenchyma BI-RADS CATEGORY: 2 - BENIGN RECOMMENDATION: Screening bilateral mammogram is recommended in 1 year. Mammo Location: [facility], [address] [place] [address], [id number], . -------- FINAL REPORT -------- Dictated By: Octavia Medley Dictated Date: 06/29/2024 13:30 ET Assigned Physician: Octavia Medley Reviewed and Electronically Signed By: Octavia Medley Signed Date: 06/29/2024 14:53 ET Workstation ID: [id number] Transcribed By: Self Edit Transcribed Date: 06/29/2024 14:43 ET Narrative 06/29/2024 2:53 PM EDT A BILATERAL DIGITAL 3D SCREENING MAMMOGRAPHY HISTORY: Routine screening. COMPARISON: Multiple priors dating back to 02/10/2021 Technique: Bilateral full field digital mammography (3D) was performed using standard CC and MLO projections CAD was used to evaluate this mammogram. FINDINGS: Right: No suspicious masses, groups of microcalcification or areas of architectural distortion identified. Stable typically benign parenchymal asymmetries. Scattered typically benign calcifications. Left: No suspicious masses, groups of microcalcification or areas of architectural distortion identified. Stable typically benign parenchymal asymmetries. Scattered typically benign calcifications. BREAST DENSITY: C - The breasts are heterogeneously dense which may obscure small masses. Procedure Note Octavia Medley MD - 06/29/2024 A BILATERAL DIGITAL 3D SCREENING MAMMOGRAPHY HISTORY: Routine screening. COMPARISON: Multiple priors dating back to 02/10/2021 Technique: Bilateral full field digital mammography (3D) was performedusing standard CC and MLO projections CAD was used to evaluate this mammogram. FINDINGS: Right: No suspicious masses, groups of microcalcification or areas ofarchitectural distortion identified. Stable typically benign parenchymalasymmetries. Scattered typically benign calcifications. Left: No suspicious masses, groups of microcalcification or areas ofarchitectural distortion identified. Stable typically benign parenchymalasymmetries. Scattered typically benign calcifications. BREAST DENSITY: C - The breasts are heterogeneously dense which mayobscure small masses. IMPRESSION: 1. No mammographic evidence of malignancy 2. Heterogeneous breast parenchyma BI-RADS CATEGORY: 2 - BENIGN RECOMMENDATION: Screening bilateral mammogram is recommended in 1 year. Mammo Location: [facility], [address] [place] [address], [id number], . -------- FINAL REPORT -------- Dictated By: Octavia Medley Dictated Date: 06/29/2024 13:30 ET Assigned Physician: Octavia Medley Reviewed and Electronically Signed By: Octavia Medley Signed Date: 06/29/2024 14:53 ET Workstation ID: [id number] Transcribed By: Self Edit Transcribed Date: 06/29/2024 14:43 ET Barbara Aguero MD IMG BI PROCEDURES Final Res ult from Last 3 Months or Most Recently Relevant to Health Maintenance Additional Health Concerns Active Problems Noted Date Diagnosed Date Autogenerated Problem 02/18/2025 [place] [facility] [place] Cor[place] Nurse Relationship Specialty Start Date End Date Barbara Aguero MD [address] [place] [address] PCP - General 10/26/23
--- OUTSIDE RECORDS SUMMARY | 2025-02-19 14:27 | XMS_ITS | Patient Health Record ---
Author Organization [facility] Address [address] [place] [address] Care Team Providers Care Nurse Orthopedic Name Role Phone DIMITRI TOSCANO, JOELLE Primary Care Provider Unavailab Aliyah Stone Unavailable [phone] Allergies Allergen (clinical drug ingredient) Drug/Non Drug Allergy documented on EMR Reaction Allergy Type Onset Date Status IV DYE (uncoded) ANAPHYLAXIS Allergy A ctive amoxicillin Amoxicillin HIVES Drug Allergy Act jeff cephalexin Cephalexin RASH Drug Allergy Activ e hydromorphone Hydromorphone HCl Unknown Drug Allergy Active levofloxacin Levofloxacin RASH Drug Allergy A ctive Sulfa RASH Drug Allergy Active nitrofurantoin, macrocrystals / nitrofurantoin, monohydrate Macrobid RASH Drug Allergy Active codeine Codeine HEADACHE Drug Allergy Active Reason For Referral No Information Medications Medication SIG (Take, Route, Frequency, Duration) Notes Start Date End Date Status Vitamin D 2000 UNIT 1 tablet Orally Once a day Active Albuterol 2 PUFFS Q4H PRN Active Calcium + D 500-1000-40 MG-UNT-MCG Orally Activ e Furosemide 20 MG 1 tablet Orally Once a day Active Gabapentin 300 MG 1 tablet Orally Thre e x a day Active HumaLOG 100 UNIT/ML Subcutaneous Active Trulicity Active Losartan Potassium 12.5MG A ctive Metoprolol Tartrate 1 tablet with food Orally Twice a day 12.5MG BID Active Aspirin 81 MG 1 tablet Orally Once a day Active Pantoprazole Sodium 40 MG 1 tablet Orally TWICE a day Active Clobetasol Propionate E 0.05 % 1 application to affected area Externally every other day; Duration: 365 days 07/12/2017 Active tiZANidine HCl 4 MG 1 tablet as needed Orally Three times a day Active Lidocaine 5 % 1 application to affected area as needed Externally every other day; Duration: 365 days 07/12/2017 Active Tricor 145 MG 1 tablet with food Orally Once a day Active Estradiol Vaginal Cream 0.01% 1 Gram externally every other day; Duration: 90 days 10/03/2019 Active Social History Tobacco Use: Social History Observation Description Date Details (start date - stop date) Former Smoker NA - NA Tobacco Use/Smoking Question Answer Notes Are you a former smoker How long has it been since you last smoked? > 10 years Alcohol Screen (Audit-C) Question Answer Notes Did you have a drink containing alcohol in the p ast year? No Points 0 Interpretation Negative Sexual History Question Answer Notes Had sex in the past 12 months (vaginal, oral, or anal)? No Tobacco use other than smoking: Question Answer Notes Are you an other tobacco user? 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 (disorder) (09714168158896787) 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) Active confirmed Problem Uncomplicated asthma (disorder) (094707319) Unspecified asthma, uncomplicated (J45.909) Active confirmed Problem Gastro-esophageal reflux disease with esophagitis (680063814) Gastro-esophageal reflux disease with esophagitis (K21.0) Active confirmed Problem Localized morphea (311103134) Lichen sclerosus et atrophicus (L90.0) Active confirmed Problem Osteoarthritis (806272023) Unspecified osteoarthritis, unspecified site (M19.90) Active confirmed Problem Abnormal findings on diagnostic imaging of breast (619431451) Other abnormal and inconclusive findings on diagnostic imaging of breast (R92.8) Active confirmed Plan Of Treatment Pending Test Test Name Order Date Mammogram, right breast 07/12/2017 THIN PREP,HPV,LONA IF HPV+ (>29YR)(SCRN) 07/12/2017 MM Digital Mammo Screening 07/12/2017 MM Digital Screening Mammogram 3D 2019 Insurance Providers Payer Name Payer Address Payer Phone Subscriber Number Group Number Insured Name Patient Relationship to Insured Coverage Start Date Coverage End Date MEDICARE [address] [employer] [place] [id number] MONICA YESSY Self - patient is the insured [facility] OFFICE OF COMMUNITY CARE [address] [address] [place] [address] [id number] MONICADARELLH Self - patient is the insured Medical (General) History Medical History History ICD Code Gallbladder Disease Unspecified asthma, uncomplicated J45.90 9 Essential (primary) hypertension I10 Type 2 diabetes mellitus without complic ations E11.9 Unspecified osteoarthritis, unspecified site M19.90 Migraine, unspecified, not intractable, without status migrainosus G43.909 Hyperlipidemia, unspecified E78.5 Gastro-esophageal reflux disease with es ophagitis K21.0 Atherosclerotic heart diseas e of [place] coronary artery with other forms of angina pectoris I25.118 Lichen sclerosus et atrophicus L90.0 Other abnormal and inconclusive findings on diagnostic imaging of breast R92.8 Inconclusive mammogram R92.2 Surgical History Surgery Date(Month/Year) Hysterectomy for cervical ca. R ovary re sybil 1979 Double Hernia repair Tonsillectomy Small Bowel Resection (for a kink ) Lt Breast Biopsy x2 (benign) Lymph nodes removed Rt cardiac stent placement L carpal tunnel repair 2016 LSO for cyst Trigger Thumb Surgery 02/04/2018 Hospitalization History Reason Date(Month/Year) child see Surgery Hx
--- OUTSIDE RECORDS SUMMARY | 2025-02-19 14:27 | XMS_ITS ---
Author Name [facility] Organization Unknown Care Team Organization Name Specialty Phone Email Start Date End Da te [facility] LUIS FERNANDO PAIGE Primary Care 03/31/2023 12/06/2023
--- OUTSIDE RECORDS SUMMARY | 2025-02-19 14:27 | XMS_ITS | Encounter Summary ---
Author Organization [facility] Address [address] [place] [address] Care Team Providers Care Criminal Justice Instructor Name Role Phone Barbara Aguero MD Primary Care Provider Reason for Visit * Reason Onset Date Comments Hospitalization/ER 02/16/2025 Fall 02/16/2025 URI 02/16/2025 Cough 02/16/2025 Shortness of Breath 02/16/2025 Encounter Details Date Type Department Care Team ([facility] Contact Info) Description 02/16/2025 Telephone Adult Medicine [facility] [address] [place] [address] Barbara Aguero MD [address] [place] [address] Social History Tobacco Use Types Packs/Day Years [...] care for your loved ones. For example, attendant child activity or elderly care for an older adult? [...] PM EST documented as of this encounter Progress Notes * Belen Shultz RN - 02/19/2025 10:39 AM EST Pt has had cough for 3 days She went to the ed for a knee pain and feels she may have been exposed C/O chest wall pain with deep breath and cough, denies SOB, able to speak in short sentences and has audible wheezing, using OTC meds as directed with relief, cough is non productive for Sputum, denies fever (has not taken temp) able to take PO with no difficulty, denies N/V/D, Pt to go [facility] now she declined visit at [facility] due to distance Advised home care following the cough Protocol. RN reinforced telephone consultation and advice. Reviewed with the patient the signs and symptoms to watch for that would require immediate attention. If symptoms change, worsen or increase in intensity, to call back immediately. Appointment * Shanon Maya - 02/19/2025 10:29 AM EST Patient call requires triage: Symptoms patient is presenting: Patient is calling back and is hoping to speak to a nurse. She has a bad cold/cough but she did not get a call back regarding the fall. She states she was getting sickwhen she was at the ER for the fall. Shortness of breath. How long has patient had these symptoms?: Wednesday For ALL patients calling to schedule any appointment (routine, sick visit, follow up, consult, etc.) in the outpatient setting please ask the following questions: Do you have fever of higher than 101, sore throat with difficulty swallowing or severe shortness ofbreath? no If YES to any of these above symptoms, send a message to triage and do not book. Red dot. If no, an audio or video visit should be booked. Have you had close contact with someone with Coronavirus in the last 14 days? Yes, maybe at the ER Have you traveled abroad? no Have you traveled recently to another state outside of [place], [place], [place], [place], [place], [place], [place]? no o If yes, did you quarantine for 14 days or have a negative covid test? no If yes to any of the above, patient is not to be scheduled in office until after 14 day quarantine or negative covid test. If pain or injury related was it due to an accident at work or from a motor vehicle accident? If yes, date of accident/Injury: No If yes, gather 3rd alliance party insurance information Third Republican Information: not applicable PCP: Barbara Aguero MD Payor: MEDICARE / Plan: MEDICARE PART A & B / Product Type: Medicare / * Shanon Maya - 02/16/2025 9:08 AM EDT Hospital/ER follow up appointment needed Hospital patient was treated at: [facility] Was this only an ER visit or was the patient admitted to the hospital? ER Visit only Date of visit if ER visit only: 02/15/25 If patient was admitted what was the date of discharge? Reason/diagnosis for visit or stay: fall When was the patient told to follow up? Aldo, per the patient Was visit or stay related to an injury? If yes, what was the date of injury (DOI)? Yes. 02/13/25, patient fell If yes, was the injury due to: Not 3rd alliance party related documented in this encounter Plan of Treatment Upcoming Encounters Date Type Department Care Team (Late st Contact Info) Description 02/27/2025 8:30 AM EST Office Visit Urogynecology - [address] [phone] Salima Milton MD [address] [place] [address] 02/27/2025 1:30 PM EST Office Visit [facility] Hematology Oncology [address] [place] [phone] Tasia Frey PA [address] [place] [address] 03/19/2025 9:00 AM EST Appointment [facility] Endoscopy [address] [place] [address] Aldo, Toni, DO 299 [facility] [address] [place] [address] 03/21/2025 1:30 PM EST Office Visit Orthopedic Surgery - [place] 250 175 [facility] 250 [place] [address] Zoran Marin, DPM 230 [place] [address] 04/04/2025 11:30 AM EST Office Visit Adult Medicine [address] [phone] Barbara Aguero MD [address] [place] [address] 04/05/2025 2:00 PM EST Office Visit Endocrinology - [address] [phone] Charlee Ray PA [address] [place] [address] 08/13/2025 2:00 PM EDT Office Visit Pulmonology - [place] 175 [facility] 200 [place] [phone] Deneen Carter MD [address] [place] [phone] 11/13/2025 8:30 AM EDT Office Visit Urogynecology [address] [phone] Salima Milton MD [address] [place] [address] 12/13/2025 4:00 PM EDT Office Visit Adult Medicine [address] [phone] Barbara Aguero MD [address] [place] [address] documented as of this encounter Goals Goal Patient Goal Type Associated Problems Recent Progress Patient-Stated? Author <enter goal here> General No change( 025 1:35 PM EDT) Yes Fide Leone, OT Note: OT PATIENT GOAL HAVE LESS PAIN RIGHT DOMINANT HAND TO RESUME ARTS AND CRAFTS documented as of this encounter Visit Diagnoses Not on filedocumented in this encounter Additional Health Concerns Assessment Noted Time PHQ-9 Depression Total Score: 0 12/14/19 25 2:10 PM EDT A fall risk assessment has been complete d for the patient 12/13/2024 2:11 PM EDT documented as of this encounter Care Teams Criminal Justice Instructor Relationship Specialty Start Date End Date Barbara Aguero MD [address] [place] [address] PCP - General 10/26/23 documented as of this encounter
--- OUTSIDE RECORDS SUMMARY | 2025-02-19 14:27 | XMS_ITS | Encounter Summary ---
Author Organization [facility] Address [address] [place] [address] Care Team Providers Care Box Turner Name Role Phone Barbara Aguero MD Primary Care Provider [phone] Reason for Referral * Consultation (Routine) - Authorized Specialty Diagnoses / Procedures Referred By Tennille govea Referred To Contact Orthopaedics / Orthopaedic Surgery Diagnoses Osteoarthritis of both knees, unspecified osteoarthritis type Barbara Aguero MD 444 [place] [address] Phone: tel: fax: Orthopedic Surgery [facility] [address] [place] [address] Phone: tel: fax: Referral ID Status Reason Start Date Expiration Date Visits Requested Visits Authorized [id number] Authorized Specialty Services Required 02/16/2026 1 1 Encounter Details Date Type Department Care Team ([facility] st Contact Info) Description 02/16/2025 Results Follow-Up Adult Medicine [facility] 444 [facility] [place] [address] Barbara Aguero MD [address] [place], [place] Social History Tobacco Use Types Packs/Day Years [...] Record ed Within the last 3 months, ho w many times did you visit the emergency [...] care for your loved ones. For example, child care counselor or elderly care for an older adult? [...] PM EST documented as of this encounter Plan of Treatment Upcoming Encounters Date Type Department Care Team (Late st Contact Info) Description 02/27/2025 8:30 AM EST Office Visit Urogynecology [address] [phone] Salima Milton MD [address] [place] [address] 02/27/2025 1:30 PM EST Office Visit [facility] Hematology Oncology [address] [place] [phone] Tasia Frey PA [address] [place] [address] 03/19/2025 9:00 AM EST Appointment [facility] Endoscopy [address] [place] [address] Toni Carlson DO 299 [facility] [address] [place] [address] 03/21/2025 1:30 PM EST Office Visit Orthopedic Surgery [facility] 250 175 [facility] 250 [place] [phone] Zoran Marin, DPCarey [address] [place] [phone] 04/04/2025 11:30 AM EST Office Visit Adult Medicine [address] [phone] Barbara Aguero MD [address] [place] [address] 04/05/2025 2:00 PM EST Office Visit Endocrinology [address] [phone] Charlee Ray PA [address] [place] [address] 08/13/2025 2:00 PM EDT Office Visit Pulmonology - [address] [place] [phone] Deneen Carter MD [address] [place] [address] 11/13/2025 8:30 AM EDT Office Visit Urogynecology [address] [phone] Salima Milton MD [address] [place] [address] 12/13/2025 4:00 PM EDT Office Visit Adult [address] [phone] Barbara Aguero MD [address] [place] [address] Scheduled Referrals Name Type Priority Associated Diagnoses Orde r Schedule Ambulatory referral to Orthopedic Outpatient Referral Routine Osteoarthritis of both knees, unspecified osteoarthritis type 1 Occurrences starting 02/16/2025 until 02/16/2026 documented as of this encounter Goals Goal Patient Goal Type Associated Problems Recent Progress Patient-Stated? Author <enter goal here> General No change( 025 1:35 PM EDT) Yes Leone, Fide A, OT Note: OT PATIENT GOAL HAVE LESS PAIN RIGHT DOMINANT HAND TO RESUME ARTS AND CRAFTS documented as of this encounter Visit Diagnoses Diagnosis Osteoarthritis of both knees, unspecified osteoarthritis type- Primary documented in this encounter Additional Health Concerns Assessment Noted Time PHQ-9 Depression Total Score: 0 12/14/19 25 2:10 PM EDT A fall risk assessment has been complete d for the patient 12/13/2024 2:11 PM EDT documented as of this encounter Care Teams Box Turner Relationship Specialty Start Date End Date Barbara Aguero MD [address] [place] [address] PCP - General 10/26/23 documented as of this encounter
--- OUTSIDE RECORDS SUMMARY | 2025-02-19 14:27 | XMS_ITS | Encounter Summary ---
Author Organization [facility] Address [address] [place] [address] Care Team Providers Care Lab Clerk Name Role Phone Barbara Aguero MD Primary Care Provider [phone] Reason for Visit * Reason Onset Date Comments Fall 02/15/2025 Encounter Details Date Type Department Care Team ([facility] st Contact Info) Description 02/15/2025 Telephone Adult Medicine [facility] 444 [facility] [place] [address] Barbara Aguero MD [address] [facility] [place] [address] Social History Tobacco Use Types Packs/Day Years [...] care for your loved ones. For example, early childhood director or elderly care for an older adult? [...] Progress Notes * Belen Shultz RN - 02/15/2025 4:40 PM EDT Pt flee yesterday she does not know why she went down, denies any LOC she did not hither head she was able to get up by herself is ambulatory with a walker now, has pain with full weight bearing Pt has no chest pain or SOB, no N/V/D or fever, she has no headache, C/O pain along her left side and in her right wrist, some selling in her right wrist and in both knees, Pt to go to [facility], no appointment in the office until next week * Shanon Maya - 02/15/2025 4:28 PM EDT Patient call requires triage: Symptoms patient is presenting: patient fell on 02/13, she says she called yesterday and spoke withsomeone here, she waited for a nurse to call her, now states she called at 7 AM and spoke to the answering service. Has knee pain, neck pain, wrist pain, left leg pain. Did not go to the ER because she will have a bill. How long has patient had these symptoms?: 02/13 For ALL patients calling to schedule any [...] with Coronavirus in the last 14 days? no Have you traveled abroad? no Have you traveled recently to another state outside of [place], [place], [place], [place], [place], [place], [place]? no o If yes, did you quarantine [...] gather 3rd alliance party insurance information Third Alliance Party Information: not applicable PCP: Barbara Aguero MD Payor: MEDICARE / Plan: MEDICARE PART A & B / Product Type: Medicare / documented in this encounter Plan of Treatment Upcoming Encounters Date Type Department Care Team (Late st Contact Info) Description 02/27/2025 8:30 AM EST Office Visit Urogynecology [facility] 444 [place], [place] [phone] Salima Milton MD [address] [address] 02/27/2025 1:30 PM EST Office Visit [facility] Hematology Oncology [address] [place] [phone] Tasia Frey PA 271 [place] [address] 03/19/2025 9:00 AM EST Appointment [facility] Endoscopy [address] [place] [phone] Toni Carlson DO 299 [facility] 419 [place] [address] 03/21/2025 1:30 PM EST Office Visit Orthopedic Surgery - [place] [address] [facility] 250 [place] [phone] Zoran Marin, DPCarey 230 [place] [address] 04/04/2025 11:30 AM EST Office Visit [facility] [place] [address] [place] [address] Barbara Aguero MD [address] [place] [address] 04/05/2025 2:00 PM EST Office Visit Endocrinology - [address] [phone] Charlee Ray PA 444 [place], [place] 08/13/2025 2:00 PM EDT Office Visit Pulmonology - [place] [address] [place] [phone] Deneen Carter MD 230 [place] [phone] 11/13/2025 8:30 AM EDT Office Visit Urogynecology - [place] [address] [place] [address] Salima Milton MD [address] [place] [address] 12/13/2025 4:00 PM EDT Office Visit [facility] [place] [address] [place] [address] Barbara Aguero MD 444 [place], [place] documented as of this encounter Goals Goal [...] documented as of this encounter Care Teams Lab Clerk Relationship Specialty Start Date End Date Barbara Aguero MD 444 [place], [place] PCP - General 10/26/23 documented as of this encounter
--- OUTSIDE RECORDS SUMMARY | 2025-02-19 14:27 | XMS_ITS | Data Portability ---
Author Organization Formerly [facility], [facility], [facility] Address [address] [place] [address] Assessment No assessment recorded. Plan of Treatment Reminders Order Date Submit Date Provider Last Modified By Organization Details Last Modified Time Details Appointments None record ed. Lab None record ed. Referral None record ed. Procedures None record ed. Surgeries None record ed. Imaging None record ed. Medication Orders None record ed. Patient TargetsNo targets recorded. Patient InstructionsNo instructions recorded. Reason for Referral None Reported. 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 Medical Equipment None Reported. Allergies Allergen ID Allergen Name Allergen Category Reaction Reaction Severity Criticality Documentation Date Start Date Code Code System Note Provider Name and Address Organization Details Recorded Time 1709 codeine medicatio n Not available Not available Not available 09/12/20142012 2670 RxNorm Yanna webbFormerly [facility] 5 09:04:17 1710 Substance with sulfonami de structure and antibacte rial mechanism of action (substanc e) medicatio n Not available Not available Not available 09/12/20142012 07715 8003 SNOMED Yanna Hernandez tracey Formerly [facility] 5 09:04:17 Medications Not known to be on any medication Vitals Date Recorded Body height Heart rate Body temperature Body weight Body mass index (BMI) Systolic And Diastolic Provider Name and Address Organization Details Last Updated DateTime 7 163.83 cm 69 /min 97.7 [degF] 40568.0 7 g 34 kg/m2 128/49 mm[Hg] Mildred [facility] 7 13:53:06 Date Recorded Body height Body weight Body mass index (BMI) Heart rate Systolic And Diastolic Provider Name and Address Organization Details Last Updated DateTime 09/23/2016 163.83 cm 60258.62 g 35 kg/m2 76 /min 104/65 mm[Hg] Femi Mandeep [facility] 09/23/2016 09:27:50 Date Recorded Body height Body temperature Body mass index (BMI) Heart rate Body weight Systolic And Diastolic Provider Name and Address Organization Details Last Updated DateTime 6 163.83 cm 97.9 [degF] 33 kg/m2 79 /min 06997.2 30235 g 148/55 mm[Hg] Mildred [facility] 6 10:07:19 Date Recorded Body height Heart rate Body temperature Body weight Body mass index (BMI) Systolic And Diastolic Provider Name and Address Organization Details Last Updated DateTime 6 163.83 cm 72 /min 97.8 [degF] 00185.8 5 g 33.4 kg/m2 139/61 mm[Hg] Mildred [facility] 6 09:49:47 Date Recorded Body height Heart rate Body temperature Body weight Body mass index (BMI) Systolic And Diastolic Provider Name and Address Organization Details Last Updated DateTime 6 163.83 cm 71 /min 98.4 [degF] 16527.1 6 g 33.6 kg/m2 143/75 mm[Hg] Mildred [facility] 6 11:31:09 Social History Question Answer Notes LastModified by Organizat ion Details LastModified Time Tobacco Smoking Status Never Smoker Yanna Chavezandrews null, [place] - [facility] 09/12/2014 10:55:39 Diabetes Yes [email or web address] Information no t available 09/12/2014 Sex: Female Functional Status None recorded. Mental Status None recorded. Family History Nothing Reported. Medical History Condition Response Gout N Urologic Problem, Other N Macular Degeneration N Atrial Fibrillation N Cervical Dysplasia/ Abnormal PAP N Kidney Stones N Blood Transfusion N Blood Disorder - Other N Carpal Tunnel Syndrome N Urinary Incontinence N Blood Clots N Depression N COPD N Back Pain, Chronic N Liver Disease - Other N Obstructive Sleep Apnea N xOther 7 N Cancer 1 N Hemorrhoids N xOther 3 N Obesity N Arthritis N Infertility N Stroke N Disability, Physical N Leg or Foot Ulcers N Raynaud's Disease N Cholesterol Problems N Edema of Legs, Chronic N Skin Problems, Chronic N Fibromyalgia N xOther 2 N Erectile Disfunction N Menstrual Problems N Gallstones N Artificial Joints N Diarrhea, Chronic N xOther 5 N Eating Disorder N Gastrointestinal Bleed N Gastritis N Pelvic Problems N xOther 6 N Cataracts N Bleeding Disorder N Disability, Intellectual N Venous Stasis Ulcer N Asthma N Allergies N Gastric Reflux/GERD N Diabetes Type II Y Substance Abuse N Peripheral Vascular Disease N Diabetes Type I N Hepatitis N Autism Spectrum Disorder (ASD) N Nasal Polyps N xOther 9 N Psych./Behav. Illness - Other N xOther 1 N BPH/Prostate Enlargement N Hernia N Attention Deficit Disorder (ADD/ADHD) N Gastrointestinal Disorder - Other N Glaucoma N Defects or Inherited Disease N Pacemaker N Difficulty Swallowing N Irritable Bowel Syndrome (IBS) N Cancer 2 N Gastric or Peptic Ulcer N Head Trauma, Severe N Myocardial infarction (TN) N Varicose Veins N Heart Valve Disease N Bladder or Kidney Problems N Fracture N xOther 8 N Alcohol Abuse N Hearing or Vision Problems N xOther 4 N Anxiety, Chronic N Coronary Artery Disease/Angina N Osteoarthritis N Lyme Disease N Thyroid Problems N Anemia N Seizures/Epilepsy N Heart Murmur N Congestive Heart Failure (CHF) N Insomnia N Abuse/Domestic Violence N Diverticulitis N Dementia N Hypertension N Osteoporosis N Headaches, Chronic N Constipation, Chronic N Gynecological HistoryNo gynecological history recorded. Obstetrics History GPAL:G 0 P 0 0 0 0 Past Encounters Encounter ID Performer Location Encounter Start Date Encounter Closed Date Diagnosis/Indication Diagnosis SNOMED-CT Code Diagnosis ICD10 Code Diagnosis IMO Codes Diagnosis Note [id number] MARV CISNEROS DPM Podiatry [address] [place] [address] 09/12/2014 10:45:41 09/12/2014 11:36:40 Diabetic peripheral neuropathy [id number] MARV CISNEROS DPM Podiatry [address] [place] [address] 11/21/2014 10:22:41 11/21/2014 10:55:11 Diabetic peripheral neuropathy 868197094 [id number] MARV CISNEROS DPM Podiatry [address] [place] [address] 01/23/2015 10:19:38 01/23/2015 10:53:13 Diabetic peripheral neuropathy 794124932 E11.42 [id number] MARV CISNEROS DPM Podiatry [address] [place] [address] 04/24/2015 11:58:58 04/24/2015 12:34:02 Peripheral angiopathy due to diabetes mellitus 705407584 E13.51 [id number] MARV CISNEROS DPM Podiatry [address] [place] [address] 07/03/2015 10:58:16 07/03/2015 11:32:01 Peripheral angiopathy due to diabetes mellitus 966924516 E13.51 [id number] MARV CISNEROS DPM Podiatry [address] [place] [address] 09/04/2015 10:41:10 09/04/2015 11:15:07 Peripheral angiopathy due to diabetes mellitus 260623272 E13.51 [id number] MARV CISNEROS DPM Podiatry [address] [place] [address] 11/20/2015 09:50:02 11/20/2015 10:21:50 Peripheral angiopathy due to diabetes mellitus 712446913 E13.51 [id number] MARV CISNEROS DPM Podiatry [address] [place] [address] 01/22/2016 09:21:18 01/22/2016 10:05:14 Peripheral angiopathy due to diabetes mellitus 338132741 E13.51 [id number] MARV CISNEROS DPM Podiatry [address] [place] [address] 03/25/2016 10:43:52 03/25/2016 11:51:09 Peripheral angiopathy due to diabetes mellitus 388670604 E13.51 [id number] MARV CISNEROS DPCarey [facility]ry [address] [facility] [place] [address] 07/08/2016 12:50:36 07/08/2016 14:12:56 Peripheral angiopathy due to diabetes mellitus 399392423 E13.51 [id number] MARV CISNEROS DPM Podiatry [address] [place] [address] [place] [address] 09/23/2016 09:21:43 09/23/2016 10:00:39 Peripheral angiopathy due to diabetes mellitus 228203677 E13.51 Health Concerns Section Related Observation LastModified by Organization Detai ls LastModified Time None Recorded Concern Status LastModified by Organization Details LastModified Time None Recorded Advance Directives Directive None Recorded Payers Insurance Date Sequence Insurance Name Policy Number Policy Bansal Covered Member ID Bansal Member ID Guarantor Name 09/20/2016 2 [facility] - (MEDICARE SUPPLEMENT) Sharonda Read [id number] Sharonda Lopez Read 09/20/2016 1 [place] Sharonda Read [id number] Sharonda Lopez Read 09/20/2016 MEDICARE A-[place]: [facility] Sharonda Read [id number] Sharonda Lopez Read Notes Date Note Type Note Provider Name and Address Organization Details Recorded Time 11/20/2015 text/html Debridement of mycotic toenails 2-5,bilateral with betadine applied. Patient is a diabetic and she tested positive for neuropathy on the monofialment test. No other problems/complaint s. I was with the patient 20 minutes. MARV CISNEROS DPM [address] [place] [address], [address], [facility] 11/20/2015 13:29:58 01/22/2016 text/html Debridement of mycotic toenails 1-5,bilateral with betadine applied. Patient is a diabetic and she tested positive for neuropathy on the monofilament test. Patient has a small skin rash at base of 5th toe,right foot. She has used OTC cortisone in the past which has helped. She was told to use it more consistently and if this fails, to call me for a change in the treatment plan. No other problems/complaint s. I was with the patient 30 minutes. MARV CISNEROS DPM [address] [place], [address], [facility] 01/22/2016 10:17:22 03/25/2016 text/html Debridement of mycotic toenails 2-5,bilateral with betadine applied. Patient is a diabetic and she tested positive for neuropathy on the monofilament test. No other problems/complaint s. I was with the patient 25 minutes. MARV CISNEROS DPM [address] [place], [address], [facility] 03/25/2016 11:56:21 07/08/2016 text/html Debridement of mycotic toenails 1-5,bilateral with betadine applied. Patient is a diabetic and she tested positive for neuorpathy on the monofilament test. No other problems/complaint s. I was with the patient 30 minutes. MARV CISNEROS DPM [address] [place], [address], [facility] 07/08/2016 15:54:29 09/23/2016 text/html Debridement of mycotic toenails 1-5,bilateral with betadine applied. Patient is a diabetic and she tested positive for neuropathy on the monofilament test. No other problems/complaint s. I was with the patient 30 minutes. MARV CISNEROS DPM [address] [place], [address], [facility] 09/23/2016 09:53:40 OBGyn Episode No OBEpisode recorded.
--- OUTSIDE RECORDS SUMMARY | 2025-02-19 14:27 | XMS_ITS | Encounter Summary ---
Author Organization [facility] Address [address] [place] [address] Care Team Providers Care Quality Improvement Manager Name Role Phone Barbara Aguero MD Primary Care Provider Encounter Details Date Type Department Care Team ([facility] Contact Info) Description 02/06/2025 Results Follow-Up Adult Medicine [facility] [place] [address] [place] [address] Barbara Aguero MD [address] [facility] [address] Social History Tobacco Use Types Packs/Day Years [...] for your loved ones. For example, child nurse or elderly care for an older [...] 02/27/2025 8:30 AM EST [facility] [address] [place] [address] Salima Milton MD 580 [facility] [address] [place] [address] 02/27/2025 1:30 PM EST Office Visit [facility] Hematology Oncology [address] [place] [phone] Tasia Frey PA [address] [place] [address] 03/19/2025 9:00 AM EST Appointment [facility] Endoscopy [address] [place] [phone] Toni Carlson DO 299 [facility] [address] [place] [address] 03/21/2025 1:30 PM EST Office Visit Orthopedic Surgery - [place] [address] [facility] [address] [place] [phone] Zoran Marin, DPM [address] [place] [phone] 04/04/2025 11:30 AM EST Office Visit [facility] [place] - [address] [phone] Barbara Aguero MD [address] [place] [address] 04/05/2025 2:00 PM EST Office Visit Endocrinology - [address] [phone] Charlee Ray PA [address] [place] [address] 08/13/2025 2:00 PM EDT Office Visit Pulmonology - [place] 175 [facility] [address] [place] [phone] Deneen Carter MD [address] [place] [address] 11/13/2025 8:30 AM EDT Office Visit Urogynecology [address] [phone] Salima Milton MD [address] [place] [address] 12/13/2025 4:00 PM EDT Office Visit [facility] [place] - [address] [phone] Barbara Aguero MD [address] [place], [place] documented as of this encounter Goals Goal Patient Goal Type Associated Problems Recent Progress Patient-Stated? Author <enter goal here> General No change( 025 1:35 PM EDT) Yes Fide Leone, OT Note: OT PATIENT GOAL HAVE LESS PAIN RIGHT DOMINANT HAND TO RESUME ARTS AND CRAFTS documented as of this encounter Visit Diagnoses Diagnosis Osteopenia, unspecified location- Primary documented in this encounter Additional Health Concerns Assessment Noted Time PHQ-9 Depression Total Score: 0 12/14/19 25 2:10 PM EDT A fall risk assessment has been complete d for the patient 12/13/2024 2:11 PM EDT documented as of this encounter Care Teams Quality Improvement Manager Relationship Specialty Start Date End Date Barbara Aguero MD [address] [place] [address] PCP - General 10/26/23 documented as of this encounter
--- OUTSIDE RECORDS SUMMARY | 2025-02-19 14:27 | XMS_ITS | Data Portability ---
Author Organization [place] [facility] Address [address] [place] [id number] Care Team Providers Care Sampler Ovens Name Role Phone JOELLE MOSLEY Primary Care Provider Assessment Encounter Date Assessment Date Assessment LastModified by Organization Details LastModified Time 09/18/2019 09/18/2019 Time On Scene with Patient: 00:40:09 DDX: right shoulder contusion, right shoulder fracture, shoulder sprain Pt fall 2 days ago with no long lasting injury noted. Pt appears in NAD but wants reassurance. Will proceed with right shoulder xray. Otherwise advised to use tylenol as directed for pain. Re-evaluation precautions reviewed with patient with verbal understanding. Not available 09/18/2019 18:00:11 01/15/2022 01/15/2022 Overview/History : 71 YO F new to provider but known to She is being seen today on request of her PCP as she has COVID 19 Seems she went to ED last night but was not happy w/ her care . She reports they told her they were going to do ambulatory O2 sat and they never did . She feels like crap. She c/o of mild loose stool starting today, cough, fatigue, body aches, and low grade temp. All sxs consistent w/o covid 19 infx. She is eating a good amount and she is staying hydrated. She has been taking Tylenol to help w/ her sxs at this time w/ some relief. She has been feeling sick since Wednesday/Wednesday earlier this week. She feels steady ambulating w/ her walker. She denies any visual changes, vertigo, dizziness, numbness/tinglin g, weakness, abd pain, NV, resp distress, chest pain. No falls. No other reported sxs or concerns today. Exam: Vitals: VSS and afebrile Constitutional: 71 yo Well developed, well nourished, pleasant patient in no apparent distress. She is sitting upright comfortably in her chair and she is not toxic appearing. Eyes: PERRL at 4mm, EOM's intact, No swelling, no discharge, sclera / conjunctiva clear ENT: BL inflamed turbinates w/ mild amt of clear nasal dc, no erythema/ exudate noted in oropharynx, uvula midline, moist mucous membranes CV: RRR, no rubs/ murmurs/ gallops heard, 2+ radial pulses bilaterally, no edema and no calf tenderness, 2+ DP/ PT pulses bilaterally Pulm: breath sounds clear and equal bilaterally, no wheeze/ rhonchi or rales on auscultation. Speaks in full sentences, no increased work of breathing. GI: Soft, non-tender to palpation. No masses, normal bowel sounds. MS: Self ambulatory patient w/ any appreciable difficulty both with and without her walker, 5/5 strength throughout, moves all limbs without deficit, no evidence of trauma Neuro: No focal deficits, A&O x4, CN s II-XII grossly normal, gait is not ataxic Skin: No rash, visible skin is cdi w/o cyanosis or pallor. Psych: Calm, cooperative, non-manic. Pleasant. DDx considered, but not limited to: COVID - known diagnosis, checked last night at ED, consistent sxs Dehydration - good turgor, good pulses, stable VS, actively drinking water during our visit, Work up/Results: Reviewed PVIX CXR last night negative, CMP shows stable lytes and KFTs at baseline, CBS w/o leukocytosis, COVID swab + for COVID 19 infx. Troponin negative. No need to repeat testing today. Plan/Discussion: COVID: -She is not septic, appears well, mild sxs, benign exam -Cont Tylenol to help w/ sxs -Day 5 of sxs, out of window for antivirals -She was in ED last night and dc home as she was stable and she wished to go home per ED note -She states she is concerned about staying home as she is home alone. States family lives across the street but they are good for nothing . Her sister calls during our visit and patient hangs up angrily and flips off phone calling her a bitch. I could hear sister asking who was at her home since there was a new vehicle outside (ours). I asked if she would like me to speak to her sister to see about helping her but she declines and states I cannot speak to her. She reprots all of her neighbors are no good . They are either handicapped or black or lao . She does reports she has noone to help her . I implore her to reach out to any of these neighbors or family memers but she refuses. Discussed if she becomes concerned/gets worse/feels unsafe at home she needs to go back to ER> She does not need to go to [facility] if she does not want to and that is where she went last night. She would prefer to try [facility], or [facility]. Discussed if she feels unsafe at home I can call ambulance for her now and she declines. Woule like to stay at home. She may cont tylenol for sxs. If she can she may get immodium OTC to help w/ mild loose stools. Stay hydrated, rest and eat BRAT diet. She does report feeling unsteady on her feet however she easily ambulates about her home w/o any ataxia near falls, or unsteadiness noted. Discussed that she does have walker stored away and I did get this out for her and this makes her feel better and safer so she thanks me for this. She would like to stay home and she does have functioning phone on her where she will be able to call 911 if she needs to. -She thanks us for our visit today. Pt is on agreement and verbalizes understanding with the above plans at this time. Pt has no other questions or concerns at this time. All questiosn are answered to the best of my ability. Pt thanks us for our visit today. In order to obtain further information and compare any laboratory results/values, I have accessed patient records on the [employer] and old pt records. This information was pertinent in my medical decision making today. roge Not available 01/15/2022 23:01:21 Plan of Treatment Reminders Order Date Submit Date Provider Last Modified By Organization Details Last Modified Time Details Appointments None record ed. Lab None record ed. Referral None record ed. Procedures None record ed. Surgeries None record ed. Imaging XR, should er, 2 or more view 020 09/18/19 20 [facility], [address] [place], [address], 0 08:59:28 Medication Orders None record ed. Patient TargetsNo targets recorded. Patient Instructions Encounter Date Encounter Id Patient Instructions Last Modified By Organization Details Last Modified Time 09/18/2019 [id number] [employer] came to your home to evaluate you for pain to your shoulder after a fall. You have a bruise to the right lower arm, and your right side. You do not have any other findings. We are ordering an xray of your right shoulder to get it checked. Please take this requisition to [address] [place] [address] to get your xray done. If you have any worsening pain, fevers, chills, shortness of breath, radha re-evaluated. [facility]. We cannot always find the exact cause of your symptoms during your initial visit. Please follow up with your primary care provider or specialist to be rechecked or seek medical attention if your symptoms do not go away or get worse. If you develop any new or worsening symptoms and need after hours care, please go to nearest ER and/or call 911. If you have additional concerns or develop a change in your condition between 8am-10pm, please call [facility] at [phone] to help navigate your care. Not available 09/18/2019 17:30:09 Reason for Referral None Reported. Results Created Date Observation Date Name Description Value Unit Range Abnormal Flag Note LastModifiedBy Organization Detail LastModifiedTime 09/25/19 20 09/19/2019 XR, shoul isidra, 2 or more view No observ ation record ed. [email or web address] [facility] [address] [place], [address], 09/25/2019 19:28:12 Result Notes None recorded. Procedures Surgical History Date Name Laterality Status Provider Name and Address Organization Details Recorded Time 022 Medication Review completed LUANN Turner [facility] [address], [place], [address], [place] [facility] 01/15/2022 19:50:09 Cholecystectomy completed LUANN Junior [address], [place], [address], [place] [facility] 01/15/2022 19:48:56 Total Hysterectomy completed LUANN Harris [address], [place], [address], [place] [facility] 01/15/2022 19:49:01 Hernia Repair completed LUANN Turner [address], [place], [address], [place] [facility] 01/15/2022 19:49:08 Appendectomy completed LUANN Turner [address], [place], [address], [place] [facility] 01/15/2022 19:49:23 Imaging Results None recorded. Procedure Notes None recorded. Medical Equipment None Reported. Allergies Allergen ID Allergen Name Allergen Category Reaction Reaction Severity Criticality Documentation Date Start Date Code Code System Note Provider Name and Address Organization Details Recorded Time [id number] amoxicill in medicatio n Not available Not available Not available 09/18/2019 723 RxNorm GUILLERMINA GREENE NP [address] [place], [address], [place] [facility] 0 17:06:24 [id number] azithromy lulú medicatio n Not available Not available Not available 09/18/2019 26635 RxNorm GUILLERMINA GREENE NP [address] [place], [address], [place] [facility] 0 17:06:37 [id number] cephalexi n medicatio n Not available Not available Not available 09/18/2019 2231 RxNorm GUILLERMINA GREENE NP [address] [place], [address], [place] [facility] 0 17:07:01 493308 codeine medicatio n Not available Not available Not available 09/18/2019 2670 RxNorm GUILLERMINA GREENE NP [address] [place], [address], [place] [facility] 0 17:07:13 [id number] hydrocodo ne Not available Not available Not available Not available 09/18/2019 5489 RxNorm GUILLERMINAChadd GREENE, DORCAS [address], [place], [address], [place] [facility] 0 17:07:24 [id number] Levaquin medicatio n Not available Not available Not available 09/18/2019 85289 2 RxNorm GUILLERMINA GREENE, DORCAS [address], [place], [address], [place] [facility] 0 17:07:43 244692 Iodinated contrast media (substanc e) medicatio n Not available Not available Not available 01/15/2022 34004 2004 SNOMED LUANN Junior [address], [place], [address], [place] [facility] 2 19:16:31 [id number] Substance with sulfonami de structure and antibacte rial mechanism of action (substanc e) medicatio n Not available Not available Not available 01/15/2022 79994 8003 SNOMED LUANN Junior [address], [place], [address], [place] [facility] 2 19:16:40 [id number] oxycodone medicatio n Not available Not available Not available 01/15/2022 7804 RxNorm LUANN Junior [address] [place], [address], [place] [facility] 2 19:16:46 135373 Macrodant in medicatio n Not available Not available Not available 01/15/2022 18588 4 RxNorm LUANN Junior [address], [place], [address], [place] [facility] 2 19:16:52 [id number] hydromorp patricia medicatio n Not available Not available Not available 01/15/2022 3423 RxNorm LUANN Junior [address] [place], [address], [place] [facility] 19:17:05 Medications Name Sig Start Date Stop Date Status Note LastModified by Organization Details LastModified Time doxycycline hyclate 100 mg capsule TAKE 1 CAPSULE BY MOUTH EVERY 12 HOURS FOR 7 DAYS WITH FLUID. MAY. TAKE WITH FOOD TO MINIMIZE ABDOMINAL DISCOMFOR T 01/15 completed Not Available Not Available Not Available trazodone 50 mg tablet TAKE 1 AND 1/2 TABLETS BY MOUTH DAILY AT BEDTIME NEEDED FOR INSOMNIA active Not Available Not Available No t Available fosfomycin tromethamin e 3 gram oral packet DISSOLVE 1 PACKET IN LIQUID AND TAKE BY MOUTH ONCE 01/15 completed Not Available Not Available Not Available cefpodoxime 100 mg tablet TAKE 1 TABLET BY MOUTH EVERY 12 HOURS FOR 4 DAYS 01/15 completed Not Available Not Available Not Available hydrocodone 5 mg-acetamin ophen 325 mg tablet TAKE 1 TABLET BY MOUTH EVERY 4 HOURS NEEDED FOR SEVERE PAIN. DO NOT DRIVE WHILE TAKING THIS MEDICATIO N 01/15 completed Not Available Not Available Not Available meloxicam 15 mg tablet TAKE 1 TABLET BY MOUTH DAILY WITH FOOD OR MILK DIRECTED 01/15 completed Not Available Not Available Not Available isosorbide mononitrate ER 30 mg tablet,exte nded release 24 hr TAKE 1 TABLET BY MOUTH DAILY IN THE MORNING active Not Available Not Available No t Available tramadol 50 mg tablet TAKE 1 TABLET BY MOUTH EVERY 6 HOURS FOR 7 DAYS NEEDED FOR PAIN active Not Available Not Available No t Available meclizine 25 mg tablet TAKE 1 TABLET BY MOUTH THREE TIMES DAILY NEEDED FOR DIZZINESS 01/15 completed Not Available Not Available Not Available diazepam 2 mg tablet TAKE 1 TABLET BY MOUTH EVERY 8 HOURS NEEDED FOR MUSCLE SPASMS 01/15 completed Not Available Not Available Not Available prednisone 50 mg tablet TAKE 1 TABLET BY MOUTH TWICE DAILY ON DAY 11/13 AND 1 TABLET EVERY MORNING ON 11/14 completed Not Available Not Available Not Available morphine 15 mg immediate release tablet TAKE 1 - 1+1/2 TABLETS BY MOUTH EVERY 4 HOURS NEEDED FOR MODERATE PAIN 01/15 completed Not Available Not Available Not Available fluticasone propionate 50 mcg/actuati on nasal spray,suspe nsion SHAKE LIQUID AND USE 1 SPRAY IN EACH NOSTRIL TWICE DAILY active Not Available Not Available No t Available oxycodone 5 mg tablet TAKE 1 TO 2 TABLETS BY MOUTH EVERY 8 HOURS NEEDED FOR PAIN. DO NOT DRIVE WHILE TAKING THIS MEDICATIO N 01/15 completed Not Available Not Available Not Available hydroxyzine pamoate 25 mg capsule TAKE 1 CAPSULE BY MOUTH FOUR TIMES DAILY FOR 14 DAYS NEEDED FOR ANXIETY 01/15 completed Not Available Not Available Not Available atorvastati n active Not Available Not Available Not Available aspirin active Not Available Not Avail able Not Available fluoxetine 01/15 completed Not Available Not Available Not Available Fish Oil active Not Available Not Avai lable Not Available metoprolol tartrate active Not Available Not Available Not Available famotidine active Not Available Not Av ailable Not Available amitriptyli ne 01/15 completed Not Available Not Available Not Available losartan active Not Available Not Avai lable Not Available trazodone 01/15 completed Not Available Not Available Not Available Vitamin D3 active Not Available Not Av ailable Not Available gabapentin active Not Available Not Av ailable Not Available fenofibrate 01/15 completed Not Available Not Available Not Available fenofibrate nanocrystal lized 145 mg tablet TAKE 1 TABLET BY MOUTH DAILY FOR 7 DAYS SHORT TERM SUPPLY UNTIL MAIL ORDER COMES IN active Not Available Not Available No t Available levocetiriz ine 5 mg tablet TAKE 1 TABLET BY MOUTH DAILY IN THE EVENING 01/15 completed Not Available Not Available Not Available Humalog KwikPen (U-100) Insulin 100 unit/mL subcutaneou s Inject by subcutane ous route. active Not Available Not Available No t Available Brilinta 90 mg tablet TAKE 1 TABLET BY MOUTH TWO TIMES A DAY active Not Available Not Available No t Available OneTouch Verio test strips active Not Available Not Available Not Available Trulicity active Not Available Not Priya ilable Not Available Tresiba FlexTouch U-100 active Not Available Not Available Not Available OneTouch Delica Plus Lancet 33 gauge active Not Available Not Available Not Available FreeStyle Carlos A 2 [place] active Not Available Not Available Not Available Vitals Date Recorded Oxygen saturation Oxygen saturation in Arterial blood by Pulse oximetry Heart rate Body temperature Respiratory rate Systolic And Diastolic Provider Name and Address Organization Details Last Updated DateTime 0 95 % 95 % 66 /min 97.6 [degF] 16 /min 144/68 mm[Hg] Not Available [facility] 0 17:05:51 Date Recorded Body temperature Oxygen saturation Oxygen saturation in Arterial blood by Pulse oximetry Respiratory rate Heart rate Systolic And Diastolic Provider Name and Address Organization Details Last Updated DateTime 2 99 [degF] 98 % 98 % 18 /min 86 /min 124/44 mm[Hg] Not Available [facility] 2 19:30:45 Social History None recorded. Functional Status Question Answer Note LastModified by Organizat ion Details LastModified Time Do you use any illicit or recreational drugs? No Information not available 01/15/2022 What is your level of alcohol consumption? None Information not available 01/15/2022 Mental Status None recorded. Family History Relationship Description Onset Age of this Age Resolved Age Notes LastModified by Organization Details LastModified Time Mother Diabetes mellitus [email or web address] Not available 2021 19:48:36 Medical History Condition Response Diabetes Y High Cholesterol Y Hypertension Y Depression Y COPD Y Asthma N Kidney Disease N Gynecological HistoryNo gynecological history recorded. Obstetrics History GPAL:G 0 P 0 0 0 0 Past Encounters Encounter ID Performer Location Encounter Start Date Encounter Closed Date Diagnosis/Indication Diagnosis SNOMED-CT Code Diagnosis ICD10 Code Diagnosis IMO Codes Diagnosis Note [id number] GUILLERMINA GREENE NP [facility] [address] [place] [address] 09/18/2019 17:01:38 09/19/2019 11:27:58 Shoulder joint pain [id number] M25.519 [id number] LUANN Ventura [facility] [address] [place] [address] 01/15/2022 19:07:38 01/16/2022 15:18:54 COVID-19 [id number] U07.1 Health Concerns Section Related Observation LastModified by Organization Detai ls LastModified Time None Recorded Concern Status LastModified by Organization Details LastModified Time None Recorded Advance Directives Directive None Recorded Payers Insurance Date Sequence Insurance Name Policy Number Policy Bansal Covered Member ID Bansal Member ID Guarantor Name 01/16/2022 1 [place]IC[place] [employer] Sharonda Go Read [id number] Sharonda Read 02/23/2022 2 ALLY () Sahronda Read [id number] Sharonda Read 09/18/2019 1 *SELF PAY* Sharonda Read [id number] Sharonda Read Notes Date Note Type Note Provider Name a nd Address Organization Details Recorded Time 09/18/2019 text/html 69 year-old female with history of HTN, HLD, CAD, COPD who calls to evaluate her for a fall.On Wednesday night she woke up and she was on the floor next to her bed. Her floor is carpeted. She doesn't know why she rolled out of bed.She has been having pain to her right shoulder, right side, right leg and right ear since. Osborne Marielle came to her home to help her up and did not take her to the emergency department. Since then she has been able to do her normal activities, including driving, walking cleaning and caring for herself. There has been no impairment but she continues to have pain and wanted to get checked.She denies any recent illness, fevers, chills. She denies any shortness of breath, dyspnea on exertion or chest pain. GUILLERMINA GREENE, DORCAS [address] [place] [address] [place], [address], [place] [facility] 09/18/2019 18:00:17 01/15/2022 text/html 71 YO F new to provider but known to [facility] is being seen today on request of her PCP as she has COVID 19Seems she went to ED last night but was not happy w/ her care . She reports they told her they were going to do ambulatory O2 sat and they never did . She feels like crap. She c/o of mild loose stool starting today, cough, fatigue, body aches, and low grade temp. All sxs consistent w/o covid 19 infx. She is eating a good amount and she is staying hydrated. She has been taking Tylenol to help w/ her sxs at this time w/ some relief. She has been feeling sick since Wednesday/Wednesday earlier this week. She feels steady ambulating w/ her walker. She denies any visual changes, vertigo, dizziness, numbness/tinglin g, weakness, abd pain, NV, resp distress, chest pain. No falls. No other reported sxs or concerns today. LUANN Turner [address] [place], [address], [place] [facility] 01/15/2022 23:01:30 OBGyn Episode No OBEpisode recorded.
== END 2025-02-19 13:35 | disposition home or self-care (01) ==
PROVIDERS: Visit Provider Physician Assistant Medical
DX: R05.9 Cough, unspecified (principal)

== ENCOUNTER → 2025-02-19 13:14 | Outpatient (BNV) | payer MEDICARE, OTHER, SELFPAY | PROVIDERS: PCP Internal Medicine; Visit Provider Radiology Diagnostic Radiology | DX: R05.9 Cough, unspecified (principal) | CPT/HCPCS: 71046 ==